=== PATIENT | female | born 1980 | race African-American/Black ===

== ENCOUNTER 2016-03-06 16:34 | Emergency (ER) | payer OTHER ==
[~2016-03-06] VITALS: Ht 152.4 cm; Wt 45.4 kg
[~2016-03-06 16:34] MED LIST: ALBUTEROL SULF8.5 GM INH; ANTI-ITCH28 G1 TP; ATARAX25 MG ORAL; AZITHROMYCIN250 MG ORAL; BENTYL10 MG ORAL; CYCLOBENZAPRINE10 MG ORAL; DOXYCYCLINE MO100 MG ORAL; EPINASTINE HCL5 ML OP; IBUPROFEN600 MG ORAL; NKM; PROMETHAZINE-D118 ML ORAL; QVAR7.3 GM INH; ZITHROMAX250 MG ORAL
[2016-03-06 16:56] VITALS: BP 116/82
--- NOTE | 2016-03-06 17:19 | Emergency Room Report ---
History of Present Illness General Chief Complaint: Pain Source: Patient Present Illness HPI 35-year-old female presents emergency department complaining of clear rhinorrhea , nasal congestion, increased nasal pressure, and intermittent cough but exacerbates her chronic back pain. Patient states she has a history of deviated septum and has had one prior surgery 2 years ago and was told that she will require another surgery. Patient is not up-to-date with her vaccinations she does not vaccination this year. She denies nausea, vomiting, fevers, chills denies productive sputum denies neck pain or stiffness denies recent travel or ill contacts. Patient states she was previously prescribed nasal spray that would significantly help subside her symptoms however she has not had any spray in quite some time and has only been using a Vicks nasal menthol inhaler daily which provides minimal relief. Denies CP, Palpitations, Rash, LOC , AMS, dizziness, Changes in Vision, Sensation, paresthesias, or a sudden severe headache. Allergies: Coded Allergies: CITRIC ACID (Verified Allergy, Unknown, 03/06/16) Patient History Past Medical History: see triage record Past Surgical History: none Pertinent Family History: none Last Menstrual Period: 03/05/16 Now: No Reviewed Nursing Documentation: PMH: Agreed, PSxH: Agreed Nursing Documentation-PMH Hx Asthma: Yes Review of Systems All Other Systems: negative except mentioned in HPI Physical Exam Vital Signs Date Time Temp Pulse Resp B/P Pulse Ox O2 Delivery O2 Flow Rate FiO2 03/06/16 16:44 98.1 98 17 111/80 99 Room Air Sp02 EP Interpretation: reviewed, normal General Appearance: no apparent distress, alert, GCS 15, non-toxic Head: normocephalic, atraumatic Eyes: bilateral eye PERRL, bilateral eye normal inspection ENT: hearing grossly normal, normal pharynx, no angioedema, normal voice, TMs + canals normal, uvula midline, moist mucus membranes, nasal congestion, pharyngeal erythema, other - evidence of post nasal drainage on the posterior pharynx , no exudates, no tonsillar swelling. no appreciable TTP upon palpation of the sinuses. Neck: full range of motion, no meningismus, no bony tend, supple/symm/no masses Respiratory: chest non-tender, lungs clear, normal breath sounds, no rhonchi, no respiratory distress, no retraction, no accessory muscle use, no wheezing, speaking full sentences Cardiovascular #1: regular rate, rhythm, no edema Musculoskeletal: back normal, gait/station normal, normal range of motion, non- tender, no calf tenderness Neurologic: alert, oriented x3, responsive, motor strength/tone normal, sensory intact, speech normal Psychiatric: judgement/insight normal, memory normal, mood/affect normal, no suicidal/homicidal ideation Skin: normal color, no rash, warm/dry, well hydrated Lymphatic: no adenopathy Medical Decision Making PA Attestation Dr. Alarcon is my supervising Physician whom patient management has been discussed with. Diagnostic Impression: Primary Impression: URI ER Course Pt. presents to the ED c/o recurrent nasal congestion with clear drainage, in addition to intermittent cough that exacerbates her chronic back pain. denies sputum production. Ddx considered but are not limited to URI,post nasal drainage, pneumonia, PE, strep pharyngitis, meningitis. Vital signs: Pt. is afebrile, the remaining VS are WNL H&PE are most consistent with URI- no meningeal signs, oropharynx is not involved, no evidence of bacterial infection at this time. PE evidence to suggest post nasal drainage. ORDERS: none required at this time, the diagnosis is clinical ED INTERVENTIONS: None required at this time. --PT. EDUCATION: to follow up with ENT specialist for frequent recurrence of symptoms. DISCHARGE: At this time pt. is stable for d/c to home. Will provide printed patient care instructions, and any necessary prescriptions. Care plan and follow up instructions have been discussed with the patient prior to discharge. Last Vital Signs Date Time Temp Pulse Resp B/P Pulse Ox O2 Delivery O2 Flow Rate FiO2 03/06/16 16:56 98.3 96 18 116/82 98 Room Air Disposition: HOME, SELF-CARE Condition: Stable Scripts D-Methorphan Hb/Prometh Hcl* (PROMETHAZINE-DM SYRUP*) 118 Ml Syrup 5 ML ORAL Q6H Y for For Cough, #118 ML 0 Refills Prov: Charla Meek P.AIsauro 03/06/16 Loratadine (CLARITIN) 10 Mg Tablet 10 MG ORAL DAILY, #30 TAB Prov: Charla Meek P.A. 03/06/16 Fluticasone Propionate (Flonase Allergy Relief) 9.9 Ml [place].susp 2 SPRAYS NS BID, #9.9 ML Prov: Charla Meek 03/06/16 Patient Instructions: Deviated Septum, Upper Respiratory Infection, Adult, Easy -to-Read Additional Instructions: Take medications as directed. Follow up with PCP in 3-5 days Follow up with ENT Specialist for evaluation of your frequent recurrence of symptoms Return sooner to ED if new symptoms occur, or current symptoms become worse. Charla Meek Mar 06, 2016 17:19
[2016-03-06] MEDS ORDERED: CLARITIN10 MG ORAL (17:21)
[2016-03-06] MEDS ORDERED: FLONASE ALLERG9.9 ML NS (17:21)
[2016-03-06] MEDS ORDERED: PROMETHAZINE-D118 ML ORAL (17:21)
[2016-03-06 17:35] VITALS: BP 116/82
== END 2016-03-06 17:38 | disposition home or self-care (01) ==
LOC: EMR 17:01
DX: J06.9 Acute upper respiratory infection, unspecified (principal); J45.909 Unspecified asthma, uncomplicated
CPT/HCPCS: 99284

== ENCOUNTER 2016-03-16 20:39 | Emergency (ER) | payer OTHER ==
[~2016-03-16] VITALS: Ht 152.4 cm; Wt 47.6 kg
[~2016-03-16 20:39] MED LIST changes: +CLARITIN10 MG ORAL; +FLONASE ALLERG9.9 ML NS
[2016-03-16] MEDS ORDERED: BENZONATATE200 MG ORAL (21:07)
[2016-03-16] MEDS ORDERED: AMOXICILLIN500 MG ORAL (21:07)
[2016-03-16] MEDS ORDERED: IBUPROFEN600 MG ORAL (21:21)
[2016-03-16 21:26] VITALS: BP 123/87
[2016-03-16 21:28] VITALS: BP 123/87
--- NOTE | 2016-03-16 21:33 | Emergency Room Report ---
History of Present Illness General Chief Complaint: Upper Respiratory Illness Source: Patient Present Illness [facility] The patient is a 35-year-old female presenting with 5 days of subjective fever, sore throat, productive cough. The patient also states that she developed a headache today which is described as a 9/10 dull ache and felt "all over". Pain worse with coughing. The patient denies any recent travel or sick contacts. Pt denies any other symptoms. Allergies: Coded Allergies: CITRIC ACID (Verified Allergy, Unknown, 03/06/16) Patient History Past Medical History: see triage record Pertinent Family History: none Last Menstrual Period: 03/02/16 Now: No Reviewed Nursing Documentation: PMH: Agreed, PSxH: Agreed Nursing Documentation-PMH Past Medical History: No History, Except For Hx Asthma: Yes Review of Systems All Other Systems: negative except mentioned in HPI Physical Exam Vital Signs Date Time Temp Pulse Resp B/P Pulse Ox O2 Delivery O2 Flow Rate FiO2 03/16/16 20:47 98.1 84 16 117/85 99 Room Air Sp02 EP Interpretation: reviewed, normal General Appearance: no apparent distress, alert, GCS 15, non-toxic Head: normocephalic, atraumatic Eyes: bilateral eye PERRL, bilateral eye normal inspection ENT: hearing grossly normal, no angioedema, normal voice, TMs + canals normal, uvula midline, moist mucus membranes, tonsillar swelling, pharyngeal erythema Neck: full range of motion, supple/symm/no masses Respiratory: chest non-tender, lungs clear, normal breath sounds, no respiratory distress, no wheezing, speaking full sentences Cardiovascular #1: regular rate, rhythm, no edema Gastrointestinal: normal bowel sounds, non tender, soft, non-distended, no guarding, no rebound Genitourinary: normal inspection, no CVA tenderness Musculoskeletal: back normal, gait/station normal, normal range of motion, non- tender Neurologic: alert, oriented x3, responsive, motor strength/tone normal, sensory intact, speech normal Psychiatric: judgement/insight normal, memory normal, mood/affect normal, no suicidal/homicidal ideation Skin: normal color, no rash, warm/dry, well hydrated Lymphatic: adenopathy - cervical Medical Decision Making PA Attestation Dr. Senior is my supervising physician. Patient management was discussed with my supervising physician Diagnostic Impression: Primary Impression: Pharyngitis, acute ER Course The patient is a 35-year-old female presenting with 5 days of subjective fever, sore throat, productive cough. Differential diagnosis include but not limited to pharyngitis, sinusitis, AOM, bronchitis, PNA PE: All vitals WNL. NAD HEENT: There is bilateral tonsillar erythema and edema. Uvula midline. No exudate. + cervical lymphad bilaterally. Lungs CTA bilat. The patient is given Motrin for pain The patient will be discharged home with a prescription for amoxicillin, cough medication, and Motrin for pain. ER precautions are given and the patient will follow up with primary care doctor Last Vital Signs Date Time Temp Pulse Resp B/P Pulse Ox O2 Delivery O2 Flow Rate FiO2 03/16/16 21:28 98.0 86 16 123/87 99 Room Air Status: improved Disposition: HOME, SELF-CARE Condition: Improved Scripts Ibuprofen* (MOTRIN*) 600 Mg Tablet 600 MG ORAL Q8H Y for For Pain, #30 TAB 0 Refills Prov: RAVI QUIÑONEZ P.A. 03/16/16 Benzonatate* (BENZONATATE*) 200 Mg Capsule 200 MG ORAL THREE TIMES A DAY, #15 PERLE Prov: MATILDEANIVETHY P.A. 03/16/16 Amoxicillin* (AMOXIL*) 500 Mg Capsule 500 MG ORAL Q12HR, #20 CAP Prov: MATILDEANIVETHY P.A. 03/16/16 Referrals: [employer] (PCP) Departure Forms: Return to Work Return to Work Date: Mar 18, 2016 Patient Instructions: Upper Respiratory Infection, Adult Additional Instructions: I discussed my findings with the patient. All questions and concerns have been answered. Treatment and medication compliance have been addressed. I advised the patient that they need to follow up with PMD in 3-5 days. Return to ED if pain remains or worsens, cough worsens or remains, you notice blood in your sputum, you notice wheezing, you experience a fever, or if needed for any reason. Patient verbalized understanding of discharge instructions. RAVI QUIÑONEZ Mar 16, 2016 21:33
== END 2016-03-16 21:28 | disposition home or self-care (01) ==
LOC: EMR 21:08
DX: J02.9 Acute pharyngitis, unspecified (principal); J45.909 Unspecified asthma, uncomplicated; Z91.048 Other nonmedicinal substance allergy status
CPT/HCPCS: 99284

== ENCOUNTER 2016-08-29 00:58 | Emergency (ER) | payer OTHER ==
[~2016-08-29] VITALS: Ht 162.6 cm; Wt 47.6 kg
[~2016-08-29 00:58] MED LIST changes: +AMOXICILLIN500 MG ORAL; +BENZONATATE200 MG ORAL
[2016-08-29 01:45] VITALS: BP 123/82
[2016-08-29] MEDS ORDERED: LORazepam Inj 2mg/ml 1ml IV ONE (01:45)
[2016-08-29 01:49] LABS: BASOPHILS % (AUTO) 1.2 % (0.0-2.0); LYMPHOCYTES % (AUTO) 13.5 % (20.0-45.0); MEAN CORPUSCULAR HEMOGLOBIN 32.1 PG (27.0-31.0); MEAN CORPUSCULAR HGB CONC 32.5 G/DL (32.0-36.0); MEAN CORPUSCULAR VOLUME 99 FL (80-99); MONOCYTES % (AUTO) 3.6 % (1.0-10.0); NEUTROPHILS % (AUTO) 81.6 % (45.0-75.0); PLATELET COUNT 280 K/UL (150-450); RED BLOOD COUNT 4.34 M/UL (4.20-5.40); RED CELL DISTRIBUTION WIDTH 13.2 % (11.6-14.8); WHITE BLOOD COUNT 8.3 K/UL (4.8-10.8)
[2016-08-29 02:51] LABS: ALANINE AMINOTRANSFERASE 11 U/L (3-33); ALBUMIN/GLOBULIN RATIO 1.4 (1.0-2.7); ANION GAP 25 (5-15); ASPARTATE AMINO TRANSFERASE 21 U/L (5-40); CALCIUM 10.3 mg/dL (8.6-10.2); CARBON DIOXIDE 20 mEQ/L (20-30); CHLORIDE 95 mEQ/L (98-107); CREATININE 0.6 mg/dL (0.5-0.9); GLOMERULAR FILTRATION RATE > 60 mL/min (>60); HEMOLYSIS 3; POTASSIUM 3.9 mEQ/L (3.4-4.9); SODIUM 140 mEQ/L (135-145); TOTAL PROTEIN 8.1 g/dL (6.6-8.7)
[2016-08-29] MEDS ORDERED: Haloperidol 5mg/ml Inj IM ONE (03:15)
[2016-08-29 03:40] VITALS: BP 126/75
[2016-08-29] MEDS ORDERED: Dicyclomine HCl 10mg/5ml oral soln ORAL ONE (04:30)
[2016-08-29] MEDS ORDERED: ZOFRAN4 M3 ORAL (04:51)
[2016-08-29 05:56] VITALS: BP 103/71
--- NOTE | 2016-09-03 06:21 | Emergency Room Report ---
History of Present Illness General Chief Complaint: Nausea, Vomiting, and Diarrhea Source: Patient Present Illness HPI Patient is a 36-year-old female who presented after increased nausea and vomiting. The patient had acute onset of vomiting associated with nonbloody emesis. Patient had recently used marijuana and subsequently began vomiting. She denied any fever. She reported feeling somewhat dizzy. She was to be hyperventilating. Patient reported having some spasming to her hands as well as numbness to her face hands and feet. She denies recent trauma or headache. Allergies: Coded Allergies: CITRIC ACID (Verified Allergy, Unknown, 03/06/16) Patient History Past Medical History: see triage record Last Menstrual Period: 1 week ago Now: No Reviewed Nursing Documentation: PMH: Agreed, PSxH: Agreed Nursing Documentation-PMH Past Medical History: No History, Except For Hx Asthma: Yes Review of Systems All Other Systems: negative except mentioned in HPI Physical Exam Vital Signs Date Time Temp Pulse Resp B/P Pulse Ox O2 Delivery O2 Flow Rate FiO2 08/29/16 01:12 98.1 105 16 124/78 100 Room Air Sp02 EP Interpretation: reviewed, normal General Appearance: normal inspection, well appearing, no apparent distress, alert, GCS 15, non-toxic Head: normocephalic, atraumatic ENT: normal ENT inspection, hearing grossly normal, normal voice Neck: normal inspection, full range of motion, supple, no bony tend Respiratory: normal inspection, lungs clear, normal breath sounds, no respiratory distress, no retraction, no wheezing Cardiovascular #1: normal inspection, regular rate, rhythm, no edema Gastrointestinal: normal inspection, normal bowel sounds, non tender, soft, no guarding, no hernia Genitourinary: no CVA tenderness Musculoskeletal: normal inspection, back normal, normal range of motion Neurologic: normal inspection, alert, responsive, speech normal, other - carpopedal spasm Psychiatric: normal inspection, judgement/insight normal, mood/affect normal, anxious Skin: normal inspection, normal color, no rash Medical Decision Making Diagnostic Impression: Primary Impression: Substance abuse Additional Impression: Vomiting ER Course Patient presented for vomiting and abdominal pain. Because of complexity of patient's case laboratory testing and imaging studies were ordered. Laboratory studies were unremarkable. Patient given IV fluids as well as IV antiemetics. Patient subsequently felt better. Patient was discharged home after IV fluids and IV hydration. The patient is advised to follow up with primary care doctor in 1-2 days. Patient is advised to return if any worsening condition or if any changes in status that are concerning. Labs Test 08/29/16 01:40 08/29/16 01:41 White Blood Count 8.3 K/UL (4.8-10.8) Red Blood Count 4.34 M/UL (4.20-5.40) Hemoglobin 13.9 G/DL (12.0-16.0) Hematocrit 42.8 % (37.0-47.0) Mean Corpuscular Volume 99 FL (80-99) Mean Corpuscular Hemoglobin 32.1 PG (27.0-31.0) Mean Corpuscular Hemoglobin Concent 32.5 G/DL (32.0-36.0) Red Cell Distribution Width 13.2 % (11.6-14.8) Platelet Count 280 K/UL (150-450) Mean Platelet Volume 8.0 FL (6.5-10.1) Neutrophils (%) (Auto) 81.6 % (45.0-75.0) Lymphocytes (%) (Auto) 13.5 % (20.0-45.0) Monocytes (%) (Auto) 3.6 % (1.0-10.0) Eosinophils (%) (Auto) 0.0 % (0.0-3.0) Basophils (%) (Auto) 1.2 % (0.0-2.0) Total Creatine Kinase 62 U/L (26-140) Sodium Level 140 mEQ/L (135-145) Potassium Level 3.9 mEQ/L (3.4-4.9) Chloride Level 95 mEQ/L (98-107) Carbon Dioxide Level 20 mEQ/L (20-30) Anion Gap 25 (5-15) Blood Urea Nitrogen 7 mg/dL (7-23) Creatinine 0.6 mg/dL (0.5-0.9) Estimat Glomerular Filtration Rate > 60 mL/min (>60) Glucose Level 143 mg/dL (74-106) Calcium Level 10.3 mg/dL (8.6-10.2) Total Bilirubin 0.8 mg/dL (0.0-1.2) Aspartate Amino Transf (AST/SGOT) 21 U/L (5-40) Alanine Aminotransferase (ALT/SGPT) 11 U/L (3-33) Alkaline Phosphatase 63 U/L (35-104) Total Protein 8.1 g/dL (6.6-8.7) Albumin 4.8 g/dL (3.5-5.2) Globulin 3.3 g/dL Albumin/Globulin Ratio 1.4 (1.0-2.7) Last Vital Signs Date Time Temp Pulse Resp B/P Pulse Ox O2 Delivery O2 Flow Rate FiO2 08/29/16 05:56 95 17 103/71 99 Room Air 08/29/16 03:40 98.6 Status: improved Disposition: HOME, SELF-CARE Condition: Stable Scripts Ondansetron* (ZOFRAN*) 4 Mg Tablet 4 MG ORAL Q6H Y for Nausea & Vomiting, #30 TAB Prov: Asa Zamudio 08/29/16 Referrals: NON PHYSICIAN (PCP) Patient Instructions: Nausea, Adult, [id number] Asa Zamudio Sep 03, 2016 06:21
== END 2016-08-29 05:56 | disposition home or self-care (01) ==
LOC: EMR 01:20
DX: F19.10 Other psychoactive substance abuse, uncomplicated (principal); R11.10 Vomiting, unspecified; Z88.8 Allergy status to other drugs, medicaments and biological substances; M62.838 Other muscle spasm
CPT/HCPCS: 36415; 80053; 82550; 85025; 96360; 96372; 96374; 99284; J1630

== ENCOUNTER 2016-11-15 19:00 | Emergency (ER) | payer OTHER ==
[~2016-11-15] VITALS: Ht 154.9 cm; Wt 47.6 kg
[~2016-11-15 19:00] MED LIST changes: +ZOFRAN4 M3 ORAL
[2016-11-15 19:13] VITALS: BP 122/84
--- NOTE | 2016-11-15 19:36 | Emergency Room Report ---
History of Present Illness General Chief Complaint: Sore Throat Present Illness HPI 36-year-old female presents to the emergency department complaining of body aches, 5/10 in severity localized sore throat, headache, nausea, cough x2 days. Patient reports that her daughter has similar symptoms which started the day prior. Reports chills denies fevers. Patient states her last menstrual period was approximately a week ago and denies . Patient denies abdominal pain or vomiting. Denies constipation diarrhea, rashes, neck pain or stiffness. Denies CP, Palpitations, LOC, AMS, dizziness, Changes in Vision, Sensation, paresthesias, or a sudden severe headache. Allergies: Coded Allergies: CITRIC ACID (Verified Allergy, Unknown, 03/06/16) Patient History Past Medical History: see triage record Past Surgical History: none Pertinent Family History: none Last Menstrual Period: 1 week ago Now: No Immunizations: UTD Reviewed Nursing Documentation: PMH: Agreed, PSxH: Agreed Nursing Documentation-PMH Hx Asthma: Yes Review of Systems All Other Systems: negative except mentioned in HPI Physical Exam Vital Signs Date Time Temp Pulse Resp B/P (MAP) Pulse Ox O2 Delivery O2 Flow Rate FiO2 11/15/16 19:07 98.1 82 16 122/84 99 Room Air Sp02 EP Interpretation: reviewed, normal General Appearance: no apparent distress, alert, GCS 15, non-toxic Head: normocephalic, atraumatic Eyes: bilateral eye normal inspection, bilateral eye PERRL ENT: hearing grossly normal, normal pharynx, no angioedema, normal voice, TMs + canals normal, uvula midline, nasal congestion Neck: full range of motion, no meningismus Respiratory: chest non-tender, lungs clear, normal breath sounds, speaking full sentences Cardiovascular #1: regular rate, rhythm Rectal: deferred Musculoskeletal: back normal, gait/station normal, normal range of motion, non- tender Neurologic: alert, oriented x3, responsive, motor strength/tone normal, sensory intact, speech normal Psychiatric: judgement/insight normal, memory normal, mood/affect normal Skin: normal color, no rash, warm/dry, well hydrated, other - small subcutaneous abscess 0.5 cm to the left anterior chest. no rashes Lymphatic: no adenopathy Medical Decision Making PA Attestation Dr. Senior is my supervising Physician whom patient management has been discussed with. Diagnostic Impression: Primary Impression: Abscess Additional Impression: Upper respiratory infection, viral ER Course 36-year-old female presents to the emergency department complaining of body aches, 5/10 in severity localized sore throat, headache, nausea, cough x2 days. Patient reports that her daughter has similar symptoms which started the day prior. Reports chills denies fevers. Patient states her last menstrual period was approximately a week ago and denies . Patient denies abdominal pain or vomiting. Denies constipation diarrhea, rashes, neck pain or stiffness. Denies CP, Palpitations, LOC, AMS, dizziness, Changes in Vision, Sensation, paresthesias, or a sudden severe headache. Pt. also reports insect bite on the anterior left side of abdomen x 1 day with progressive erythema, increased temperature to palpation, and 6/10 in severity pain. pt. states she felt the bite the night prior. this morning noted a white head which she squeezed pus from, however progression of erythema and tenderness. Denies lesions/rashes elsewhere on the body. Denies new medications or body washes or creams. Denies swelling of the lips, tongue , throat or airway. Denies wheezing , or shortness of breath. Denies recent travel, recent illness or ill contacts. denies blisters, oral lesions, or sloughing of the skin. Ddx considered but are not limited to URI, pneumonia, PE, strep pharyngitis, meningitis, Cellulitis, abscess, insect bite just to name a few. Vital signs: Pt. is afebrile, the remaining VS are WNL H&PE are most consistent with URI- no meningeal signs, oropharynx is not involved, no evidence of bacterial infection at this time. --- pt. also has small subcutaneous abscess 0.5 cm to the left anterior chest. no rashes. ORDERS: none required at this time, the diagnosis is clinical ED INTERVENTIONS: None required at this time. --PT. EDUCATION: Discussed antibiotic resistance with inappropriate prescribing of antibiotics for viral illnesses. Discussed signs and symptoms to indicate viral illness versus bacterial illness. DISCHARGE: At this time pt. is stable for d/c to home. Will provide printed patient care instructions, and any necessary prescriptions. Care plan and follow up instructions have been discussed with the patient prior to discharge. Last Vital Signs Date Time Temp Pulse Resp B/P (MAP) Pulse Ox O2 Delivery O2 Flow Rate FiO2 9/25/17 19:13 98.1 84 16 122/84 99 Room Air Disposition: HOME, SELF-CARE Condition: Stable Scripts Bacitracin/Polymyxin B Sulfate (BACITRACIN-POLYMYXIN OINTMENT) 28.35 Gm Oint...g. 1 APPLIC TP BID, #28.3 GM Prov: Charla Meek 11/15/16 Cephalexin* (KEFLEX*) 500 Mg Capsule 500 MG ORAL EVERY 12 HOURS for 7 Days, #14 CAP 0 Refills Prov: Charla Meek 11/15/16 Ibuprofen* (MOTRIN*) 400 Mg Tablet 400 MG ORAL THREE TIMES A DAY, #30 TAB 0 Refills Prov: Charla Meek 11/15/16 Codeine/Promethazine Hcl* (PROMETHAZINE-CODEINE SYRUP*) 118 Ml Syrup 5 ML ORAL Q6H Y for For Cough, #240 ML 0 Refills Prov: Charla Meek 11/15/16 Cetirizine Hcl/Pseudoephedrine (ZYRTEC-D TABLET) 1 Each Tab.er.12h 1 EACH ORAL Q12HR for 7 Days, #14 TAB Prov: Charla Meek 11/15/16 Patient Instructions: Abscess, [id number], Insect Bite, [id number], Upper Respiratory Infection, Adult Additional Instructions: Take medications as directed. Follow up with a Primary Care Provider in 3-5 days, even if your symptoms have resolved. --Please review list of primary care clinics, if you do not already have a primary care provider Return sooner to ED if new symptoms occur, or current symptoms become worse. Do not drink alcohol, drive, or operate heavy machinery while taking cough syrup as this may cause drowsiness. - Please note that this Emergency Department Report was dictated using [employer] power shovel operator technology software, occasionally this can lead to erroneous entry secondary to interpretation by the dictation equipment. Charla Meek Nov 15, 2016 19:36
[2016-11-15] MEDS ORDERED: ZYRTEC-D TABLE1 EACH ORAL (19:44)
[2016-11-15] MEDS ORDERED: IBUPROFEN400 MG ORAL (19:44)
[2016-11-15] MEDS ORDERED: PROMETHAZINE-C118 M1 ORAL (19:44)
[2016-11-15] MEDS ORDERED: CEPHALEXIN500 MG ORAL (19:46)
[2016-11-15] MEDS ORDERED: BACITRACIN-P28.35 GM TP (19:46)
[2016-11-15 20:01] VITALS: BP 122/84
== END 2016-11-15 20:01 | disposition home or self-care (01) ==
LOC: EMR 19:36
DX: L02.213 Cutaneous abscess of chest wall (principal); J06.9 Acute upper respiratory infection, unspecified; J45.909 Unspecified asthma, uncomplicated
CPT/HCPCS: 99284

== ENCOUNTER 2016-12-13 23:36 | Emergency (ER) | payer OTHER ==
[~2016-12-13] VITALS: Ht 152.4 cm; Wt 47.6 kg
[~2016-12-13 23:36] MED LIST changes: +BACITRACIN-P28.35 GM TP; +CEPHALEXIN500 MG ORAL; +IBUPROFEN400 MG ORAL; +PROMETHAZINE-C118 M1 ORAL; +ZYRTEC-D TABLE1 EACH ORAL
[2016-12-13] MEDS ORDERED: NKM (23:46)
[2016-12-13 23:55] VITALS: BP 125/79
[2016-12-14] MEDS ORDERED: METROGEL-VAGINA70 G1 VAGIN (00:56)
[2016-12-14] MEDS ORDERED: DOXYCYCLINE MO100 MG ORAL (00:56)
[2016-12-14 01:15] VITALS: BP 125/79
[2016-12-14] MEDS ORDERED: Lidocaine 1% MPF 10mg/ml 5ml INJ ONE (01:15)
--- NOTE | 2016-12-14 04:03 | Emergency Room Report ---
History of Present Illness General Chief Complaint: Female Urogenital Problems Source: Patient Present Illness HPI Patient 36-year-old female who presented after increased vaginal discharge. Patient reported having increased foul odor. Patient said this had began after unprotected sex. Patient had recently had her menses and had just finished. She denies any recent increase in abdominal pain. She had not been having any fever. She denies any vomiting. Allergies: Coded Allergies: CITRIC ACID (Verified Allergy, Unknown, 03/06/16) Patient History Past Medical History: see triage record Last Menstrual Period: 12/08/16 Now: No : 2 Para: 1 Reviewed Nursing Documentation: PMH: Agreed, PSxH: Agreed Nursing Documentation-PMH Hx Asthma: Yes Review of Systems All Other Systems: negative except mentioned in HPI Physical Exam Vital Signs Date Time Temp Pulse Resp B/P (MAP) Pulse Ox O2 Delivery O2 Flow Rate FiO2 12/13/16 23:43 98.1 77 14 125/79 98 Room Air Sp02 EP Interpretation: reviewed, normal General Appearance: normal inspection, well appearing, no apparent distress, alert, GCS 15 Head: atraumatic ENT: normal ENT inspection, hearing grossly normal, normal voice Neck: normal inspection, full range of motion, supple, no bony tend Respiratory: normal inspection, lungs clear, normal breath sounds, no respiratory distress, no retraction, no wheezing Cardiovascular #1: regular rate, rhythm, no edema Gastrointestinal: normal inspection, normal bowel sounds, non tender, soft, no guarding, no hernia Genitourinary: os closed, other - vaginal discharge, white with fishy odor, no cmt or adnexal tenderness Musculoskeletal: normal inspection, back normal, normal range of motion Neurologic: normal inspection, alert, oriented x3, responsive, materials supervisor III-XII nml as tested, speech normal Psychiatric: normal inspection, judgement/insight normal, mood/affect normal Skin: normal inspection, normal color, no rash Medical Decision Making Diagnostic Impression: Primary Impression: Bacterial vaginosis ER Course The patient presented for vaginal discharge. Differential diagnosis included was not limited to a yeast infection, physiologic discharge, bacterial vaginosis , gonorrhea, Chlamydia, among others. Patient's benign exam and does not appear to require any further imaging or laboratory testing at this time. The patient was noted to have evidence of bacterial vaginosis. Patient being empirically treated for possible STDs due to recent unprotected sex and some cervical discharge. The patient was advised outpatient STD testing. Last Vital Signs Date Time Temp Pulse Resp B/P (MAP) Pulse Ox O2 Delivery O2 Flow Rate FiO2 12/14/16 01:15 77 14 125/79 98 Room Air 12/13/16 23:55 98.1 Status: improved Disposition: HOME, SELF-CARE Condition: Stable Scripts Doxycycline Monohydrate* (DOXYCYCLINE MONOHYDRATE*) 100 Mg Capsule 100 MG ORAL Q12H, #14 CAP 0 Refills Prov: Asa Zamudio 12/14/16 Metronidazole* (METROGEL-VAGINAL*) 70 Gm Gel.w.appl 1 APPL VAGIN EVERY 12 HOURS, #70 GM Prov: Asa Zamudio 12/14/16 Patient Instructions: Vaginitis Asa Zamudio Dec 14, 2016 04:03
== END 2016-12-14 01:15 | disposition home or self-care (01) ==
LOC: EMR 12-14 00:37
DX: N76.0 Acute vaginitis (principal); J45.909 Unspecified asthma, uncomplicated; Z88.8 Allergy status to other drugs, medicaments and biological substances
CPT/HCPCS: 96372; 99284; J0696

== ENCOUNTER 2017-02-23 07:40 | Inpatient (IN) | payer OTHER ==
[~2017-02-23] VITALS: Ht 162.6 cm; Wt 59.0 kg
[~2017-02-23 07:40] MED LIST changes: +METROGEL-VAGINA70 G1 VAGIN
[2017-02-23] MEDS ORDERED: DiphenhydrAMINE 50mg/ml Inj IVP ONE (08:00)
[2017-02-23] MEDS ORDERED: Metoclopramide 10mg/2ml Inj IVP ONE (08:00)
[2017-02-23 08:30] LABS: BASOPHILS % (AUTO) 1.8 % (0.0-2.0); EOSINOPHILS % (AUTO) 0.1 % (0.0-3.0); HEMATOCRIT 42.9 % (37.0-47.0); HEMOGLOBIN 14.2 G/DL (12.0-16.0); LYMPHOCYTES % (AUTO) 18.1 % (20.0-45.0); MEAN CORPUSCULAR VOLUME 98 FL (80-99); MONOCYTES % (AUTO) 6.3 % (1.0-10.0); NEUTROPHILS % (AUTO) 73.6 % (45.0-75.0); PLATELET COUNT 160 K/UL (150-450); RED BLOOD COUNT 4.35 M/UL (4.20-5.40); RED CELL DISTRIBUTION WIDTH 12.1 % (11.6-14.8); WHITE BLOOD COUNT 6.7 K/UL (4.8-10.8)
[2017-02-23 08:46] LABS: ANION GAP 12 mmol/L (5-15); BLOOD UREA NITROGEN 6 mg/dL (7-18); CALCIUM 8.3 MG/DL (8.5-10.1); CARBON DIOXIDE 22 MMOL/L (21-32); CHLORIDE 104 MMOL/L (98-107); CREATININE 0.6 MG/DL (0.55-1.30); POTASSIUM 3.9 MMOL/L (3.5-5.1); SODIUM 138 MMOL/L (136-145)
[2017-02-23 08:50] LABS: ALANINE AMINOTRANSFERASE 16 U/L (12-78); ALBUMIN 4.3 G/DL (3.4-5.0); ALBUMIN/GLOBULIN RATIO 1.1 (1.0-2.7); ALKALINE PHOSPHATASE 57 U/L (46-116); ASPARTATE AMINO TRANSFERASE 28 U/L (15-37); BILIRUBIN,TOTAL 0.4 MG/DL (0.2-1.0)
[2017-02-23 09:37] LABS: APPEARANCE,URINE CLEAR; BILIRUBIN, URINE NEGATIVE (NEGATIVE); COLOR,URINE PALE YELLOW; GLUCOSE, URINE (UA) NEGATIVE (NEGATIVE); KETONES,URINE 3+ (NEGATIVE); LEUKOCYTE ESTERASE ,URINE NEGATIVE (NEGATIVE); NITRITE,URINE NEGATIVE (NEGATIVE); PH,URINE 8 (4.5-8.0); PROTEIN,URINE NEGATIVE (NEGATIVE); UROBILINOGEN,URINE NORMAL MG/DL (0.0-1.0)
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
[2017-02-23 10:52] VITALS: BP 116/78
[2017-02-23] MEDS ORDERED: LORazepam Inj 2mg/ml 1ml IV PRN (13:15)
[2017-02-23] MEDS ORDERED: Metoclopramide 10mg/2ml Inj IVP PRN (13:15)
[2017-02-23] MEDS ORDERED: Mylanta II UD 30ml ORAL PRN (13:15)
[2017-02-23] MEDS ORDERED: Nitroglycerin Subl 0.4mg tab SL PRN (13:15)
[2017-02-23] MEDS ORDERED: Ketorolac 30mg Inj IV ONE (13:30)
[2017-02-23 14:07] VITALS: BP 118/74
[2017-02-23 14:45] VITALS: BP 135/74
[2017-02-23] MEDS: Morphine Sulfate 2mg/ml Inj IVP PRN (15:31)
[2017-02-23] MEDS: D5 1/2NS 1,000 ML IV SCH (15:38)
[2017-02-23 16:37] VITALS: BP 100/57
[2017-02-23 20:00] VITALS: BP 106/60
[2017-02-23] MEDS: Heparin 5000 units/ml inj SUBQ SCH (20:48)
[2017-02-23] MEDS ORDERED: Miralax 17gm pkt ORAL PRN (21:00)
--- NOTE | 2017-02-23 22:44 | History and Physical ---
History of Present Illness General Date patient seen: Feb 23, 2017 Reason for Hospitalization: Abdominal Pain Present Illness HPI 36 year old female presenting with cc of p with intractable and recurrent vomiting after eating a salmon casserole. She states that around 1 AM this morning she woke u She states that she also had multiple episodes of diarrhea. She has had crampy abdominal pain. She denies chest pain or shortness of breath. She denies recent illness. She denies fever or chills. She states that she is allover body aches. She has no other complaints. Allergies: Coded Allergies: CITRIC ACID (Verified Allergy, Unknown, 03/06/16) Medication History Scheduled Amoxicillin* (Amoxil*), 500 MG ORAL Q12HR Bacitracin/Polymyxin B Sulfate (Bacitracin-Polymyxin Ointment), 1 APPLIC TP BID Benzonatate* (Benzonatate*), 200 MG ORAL THREE TIMES A DAY Cephalexin* (Keflex*), 500 MG ORAL EVERY 12 HOURS Cetirizine Hcl/Pseudoephedrine (Zyrtec-D Tablet), 1 EACH ORAL Q12HR Doxycycline Monohydrate* (Doxycycline Monohydrate*), 100 MG ORAL Q12H Epinastine Hcl (Epinastine Hcl), 3 DROP OP TID Fluticasone Propionate (Flonase Allergy Relief), 2 SPRAYS NS BID Hydrocortisone 2% Cream (Anti-Itch 2% Cream), 1 APPLIC TP BID Hydroxyzine HCl (Hydroxyzine HCl), 25 MG ORAL FOUR TIMES A DAY Ibuprofen* (Motrin*), 400 MG ORAL THREE TIMES A DAY Loratadine (Claritin), 10 MG ORAL DAILY Metronidazole* (Metrogel-Vaginal*), 1 APPL VAGIN EVERY 12 HOURS No Known Medications* (NKM - No Known Medications*), 0 ., (Reported) No Known Medications* (NKM - No Known Medications*), 0 ., (Reported) No Known Medications* (NKM - No Known Medications*), 0 ., (Reported) Scheduled PRN Codeine/Promethazine Hcl* (Promethazine-Codeine Syrup*), 5 ML ORAL Q6H PRN for For Cough D-Methorphan Hb/Prometh Hcl* (Promethazine-Dm Syrup*), 5 ML ORAL Q6H PRN for For Cough Ibuprofen* (Motrin*), 600 MG ORAL Q8H PRN for For Pain Ondansetron* (Zofran*), 4 MG ORAL Q6H PRN for Nausea & Vomiting Patient History Healthcare decision maker Resuscitation status Full Code Advanced Directive on File Past Medical/Surgical History Past Medical/Surgical History: (1) Substance abuse Review of Systems All Other Systems: negative except mentioned in HPI Physical Exam General Appearance: cachetic Lines, tubes and drains: peripheral HEENT: normocephalic, atraumatic Neck: non-tender, normal alignment Respiratory/Chest: chest wall non-tender, lungs clear Cardiovascular/Chest: normal peripheral pulses Abdomen: normal bowel sounds Last 24 Hour Vital Signs Date Time Temp Pulse Resp B/P (MAP) Pulse Ox O2 Delivery O2 Flow Rate FiO2 02/23/17 16:38 100 Room Air 02/23/17 16:37 98.3 91 18 100/57 100 Room Air 02/23/17 16:01 98.3 02/23/17 15:10 98.0 94 18 135/74 94 Room Air 02/23/17 14:45 98.0 94 18 135/74 94 Room Air 02/23/17 14:45 94 Room Air 02/23/17 14:07 97.8 78 16 118/74 100 Room Air 02/23/17 10:52 72 16 116/78 100 Room Air 02/23/17 07:22 96 16 114/75 100 Room Air Laboratory Tests Test 02/23/17 08:10 02/23/17 09:10 White Blood Count 6.7 K/UL (4.8-10.8) Red Blood Count 4.35 M/UL (4.20-5.40) Hemoglobin 14.2 G/DL (12.0-16.0) Hematocrit 42.9 % (37.0-47.0) Mean Corpuscular Volume 98 FL (80-99) Mean Corpuscular Hemoglobin 32.6 PG (27.0-31.0) H Mean Corpuscular Hemoglobin Concent 33.1 G/DL (32.0-36.0) Red Cell Distribution Width 12.1 % (11.6-14.8) Platelet Count 160 K/UL (150-450) Mean Platelet Volume 9.0 FL (6.5-10.1) Neutrophils (%) (Auto) 73.6 % (45.0-75.0) Lymphocytes (%) (Auto) 18.1 % (20.0-45.0) L Monocytes (%) (Auto) 6.3 % (1.0-10.0) Eosinophils (%) (Auto) 0.1 % (0.0-3.0) Basophils (%) (Auto) 1.8 % (0.0-2.0) Sodium Level 138 MMOL/L (136-145) Potassium Level 3.9 MMOL/L (3.5-5.1) Chloride Level 104 MMOL/L (98-107) Carbon Dioxide Level 22 MMOL/L (21-32) Anion Gap 12 mmol/L (5-15) Blood Urea Nitrogen 6 mg/dL (7-18) L Creatinine 0.6 MG/DL (0.55-1.30) Estimat Glomerular Filtration Rate > 60 mL/min (>60) Glucose Level 127 MG/DL (74-106) H Calcium Level 8.3 MG/DL (8.5-10.1) L Total Bilirubin 0.4 MG/DL (0.2-1.0) Aspartate Amino Transf (AST/SGOT) 28 U/L (15-37) Alanine Aminotransferase (ALT/SGPT) 16 U/L (12-78) Alkaline Phosphatase 57 U/L (46-116) Total Protein 8.1 G/DL (6.4-8.2) Albumin 4.3 G/DL (3.4-5.0) Globulin 3.8 g/dL Albumin/Globulin Ratio 1.1 (1.0-2.7) Lipase 65 U/L (73-393) L Urine Color Pale yellow Urine Appearance Clear Urine pH 8 (4.5-8.0) Urine Specific [place] 1.010 (1.005-1.035) Urine Protein Negative (NEGATIVE) Urine Glucose (UA) Negative (NEGATIVE) Urine Ketones 3+ (NEGATIVE) H Urine Occult Blood Negative (NEGATIVE) Urine Nitrite Negative (NEGATIVE) Urine Bilirubin Negative (NEGATIVE) Urine Urobilinogen Normal MG/DL (0.0-1.0) Urine Leukocyte Esterase Negative (NEGATIVE) Urine HCG, Qualitative Negative Height (Feet): 5 Height (Inches): 4.00 Weight (Pounds): 130 Medications Current Medications Medications (Trade) Dose Ordered Sig/Delia Route PRN Reason Start Time Stop Time Status Last Admin Dose Admin Acetaminophen (Tylenol) 650 mg Q4H PRN ORAL T>100.5 02/23/17 13:15 03/25/17 13:14 Al Hydroxide/Mg Hydroxide (Mylanta II) 30 ml Q6H PRN ORAL dyspepsia 02/23/17 13:15 03/25/17 13:14 Dextrose (Dextrose 50%) STAT PRN IV Hypoglycemia 02/23/17 13:15 03/25/17 13:14 Dextrose/Sodium Chloride 1,000 ml @ 75 mls/hr [id number] IV 02/23/17 14:00 03/25/17 13:59 02/23/17 15:38 Diphenhydramine HCl (Benadryl) 25 mg Q6H PRN ORAL Itching/Pruritis 02/23/17 13:15 03/25/17 13:14 Heparin Sodium (Porcine) (Heparin 5000 units/ml) 5,000 units EVERY 12 HOURS SUBQ 02/23/17 21:00 03/25/17 20:59 02/23/17 20:48 Lorazepam (Ativan 2mg/ml 1ml) 1 mg Q4H PRN IV agitation 02/23/17 13:15 03/02/17 13:14 Morphine Sulfate (Morphine Sulfate) 2 mg Q4H PRN IVP severe Pain (Pain Scale 7-10) 02/23/17 13:15 03/02/17 13:14 02/23/17 15:31 Nitroglycerin (Ntg) 0.4 mg Q5M X 3 DOSES PRN SL Prn Chest Pain 02/23/17 13:15 03/25/17 13:14 Ondansetron HCl (Zofran) 4 mg Q6H PRN IVP Nausea & Vomiting 02/23/17 13:15 03/25/17 13:14 02/23/17 18:56 Pantoprazole (Protonix) 40 mg DAILY IV 02/24/17 09:00 03/26/17 08:59 Polyethylene Glycol (Miralax) 17 gm HSPRN PRN ORAL Constipation 02/23/17 21:00 03/25/17 20:59 Promethazine HCl (Phenergan) 25 mg Q8H PRN IV refractory nausea 02/23/17 13:15 03/25/17 13:14 Temazepam (Restoril) 15 mg HSPRN PRN ORAL Insomnia 02/23/17 21:00 03/02/17 20:59 Assessment/Plan Problem List: (1) Food poisoning ICD Codes: T62.91XA - Toxic effect of unspecified noxious substance eaten as food, accidental (unintentional), initial encounter SNOMED: 79484891 (2) Nausea vomiting and diarrhea ICD Codes: R11.2 - Nausea with vomiting, unspecified; R19.7 - Diarrhea, unspecified SNOMED: 0173162 (3) Abdominal pain ICD Codes: R10.9 - Unspecified abdominal pain SNOMED: 52529222 Assessment/Plan npo IV fluids check electrolytes GI evaluation. RAMAN WOMACK Feb 23, 2017 22:44
[2017-02-24] VITALS: BP 101/60
[2017-02-24 04:00] VITALS: BP 95/60
[2017-02-24] MEDS: D5 1/2NS 1,000 ML IV SCH ×2 (04:14→17:15)
[2017-02-24] MEDS: Morphine Sulfate 2mg/ml Inj IVP PRN (04:14)
[2017-02-24 06:43] LABS: BASOPHILS % (AUTO) 1.8 % (0.0-2.0); EOSINOPHILS % (AUTO) 0.2 % (0.0-3.0); HEMATOCRIT 34.6 % (37.0-47.0); HEMOGLOBIN 12.4 G/DL (12.0-16.0); LYMPHOCYTES % (AUTO) 26.7 % (20.0-45.0); MEAN CORPUSCULAR VOLUME 98 FL (80-99); MONOCYTES % (AUTO) 8.9 % (1.0-10.0); NEUTROPHILS % (AUTO) 62.5 % (45.0-75.0); PLATELET COUNT 193 K/UL (150-450); RED BLOOD COUNT 3.55 M/UL (4.20-5.40); WHITE BLOOD COUNT 9.4 K/UL (4.8-10.8)
[2017-02-24 08:00] VITALS: BP 87/53
[2017-02-24 08:12] LABS: ALANINE AMINOTRANSFERASE 12 U/L (12-78); ALBUMIN 3.1 G/DL (3.4-5.0); ALBUMIN/GLOBULIN RATIO 1.1 (1.0-2.7); ALKALINE PHOSPHATASE 39 U/L (46-116); AMYLASE 74 U/L (25-115); ANION GAP 9 mmol/L (5-15); ASPARTATE AMINO TRANSFERASE 16 U/L (15-37); BILIRUBIN,TOTAL 0.7 MG/DL (0.2-1.0); BLOOD UREA NITROGEN 5 mg/dL (7-18); CALCIUM 7.2 MG/DL (8.5-10.1); CARBON DIOXIDE 22 MMOL/L (21-32); CHLORIDE 106 MMOL/L (98-107); CREATININE 0.5 MG/DL (0.55-1.30); SODIUM 137 MMOL/L (136-145)
[2017-02-24 08:13] LABS: POTASSIUM 2.7 MMOL/L (3.5-5.1)
[2017-02-24] MEDS: Pantoprazole Inj IV SCH (09:18)
[2017-02-24] MEDS: Heparin 5000 units/ml inj SUBQ SCH ×2 (09:19→20:57)
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
--- NOTE | 2017-02-24 10:51 | Diagnostic Imaging Report ---
Indication: Abdominal pain Technique: Resendiz-scale and duplex images of the upper abdomen were obtained Comparison: none Findings: Gallbladder is unremarkable, without stones, wall thickening, nor pericholecystic fluid. Sonographic Mtz's sign is negative. Common bile duct measures 3 mm in diameter. No intrahepatic biliary ductal dilatation. Liver demonstrates normal echogenicity, no focal abnormality. Portal vein and hepatic veins are patent. Pancreas is unremarkable. Spleen is unremarkable. Left kidney measures 10.8 cm in length. Right kidney measures 10.6 cm length. Both kidneys demonstrate normal echogenicity. There is no hydronephrosis. No focal abnormality . Non-aneurysmal abdominal aorta . Impression: Negative
--- NOTE | 2017-02-24 12:45 | Pulmonology Progress Note ---
Assessment/Plan Assessment/Plan ASSESSMENT Abdominal pain intractable n/v/ diarrhea probably gastroenteritis dehydration hypo K hypo Mg marijuana user asthma/COPD PLAN OF CARE MS floor IVF Abd US negative IVF GI follows symptomatic treatment at this time trial CLD, and adv to regular diet as tolerated, a/emetic prn IVF, push PO fluids, K replaced , check K and mg in am pain mgmt ppi stool C dif O2 HHN prn, resp status currently stable get urine tox screen - + marijuana tolerates diet, afebrile, no further vomiting or diarrhea dc today push po fluids addendum at 1255 patient stated she is having abdominal pain and stated she does not want to go home with pain cancel dc order pain management advance diet case discussed and evaluated by supervising physician Subjective Allergies: Coded Allergies: CITRIC ACID (Verified Allergy, Unknown, 03/06/16) Subjective feeling better tolerates diet no further vomiting or diarrhea Objective Last 24 Hour Vital Signs Date Time Temp Pulse Resp B/P (MAP) Pulse Ox O2 Delivery O2 Flow Rate FiO2 02/24/17 08:00 98.0 74 18 87/53 96 02/24/17 04:00 98.9 90 17 95/60 99 Room Air 02/24/17 00:00 98.0 90 18 101/60 99 Room Air 02/23/17 20:00 98.0 90 17 106/60 100 Room Air 02/23/17 16:38 100 Room Air 02/23/17 16:37 98.3 91 18 100/57 100 Room Air 02/23/17 16:01 98.3 02/23/17 15:10 98.0 94 18 135/74 94 Room Air 02/23/17 14:45 98.0 94 18 135/74 94 Room Air 02/23/17 14:45 94 Room Air 02/23/17 14:07 97.8 78 16 118/74 100 Room Air Intake and Output 02/23/17 02/24/17 19:00 07:00 Intake Total 1375 ml 675 ml Balance 1375 ml 675 ml Intake Oral 0 ml IV Total 1375 ml 675 ml # Voids 3 2 General Appearance: no acute distress HEENT: normocephalic, atraumatic, anicteric, mucous membranes moist Respiratory/Chest: lungs clear, normal breath sounds, no respiratory distress Cardiovascular: normal peripheral pulses, normal rate Abdomen: normal bowel sounds, soft, non tender Extremities: no edema, pedal pulses normal Neurologic/Psychiatric: no motor/sensory deficits, alert, oriented x 3, responsive Musculoskeletal: normal muscle bulk Laboratory Tests 02/24/17 05:15: White Blood Count 9.4, Red Blood Count 3.55L, Hemoglobin 12.4, Hematocrit 34.6L , Mean Corpuscular Volume 98, Mean Corpuscular Hemoglobin 34.9H, Mean Corpuscular Hemoglobin Concent 35.8, Red Cell Distribution Width 12.0, Platelet Count 193, Mean Platelet Volume 9.0, Neutrophils (%) (Auto) 62.5, Lymphocytes (% ) (Auto) 26.7, Monocytes (%) (Auto) 8.9, Eosinophils (%) (Auto) 0.2, Basophils ( %) (Auto) 1.8, Activated Partial Thromboplast Time 28, Sodium Level 137, Potassium Level 2.7*L, Chloride Level 106, Carbon Dioxide Level 22, Anion Gap 9 , Blood Urea Nitrogen 5L, Creatinine 0.5L, Estimat Glomerular Filtration Rate > 60, Glucose Level 89, Calcium Level 7.2L, Total Bilirubin 0.7, Aspartate Amino Transf (AST/SGOT) 16, Alanine Aminotransferase (ALT/SGPT) 12, Alkaline Phosphatase 39L, Total Protein 5.9L, Albumin 3.1L, Globulin 2.8, Albumin/ Globulin Ratio 1.1, Amylase Level 74, Lipase 151 02/24/17 11:15: Urine Opiates Screen [Pending], Urine Barbiturates Screen [Pending], Phencyclidine (PCP) Screen [Pending], Urine Amphetamines Screen [Pending], Urine Benzodiazepines Screen [Pending], Urine Cocaine Screen [Pending], Urine Marijuana (THC) Screen [Pending] Current Medications Medications (Trade) Dose Ordered Sig/Delia Route PRN Reason Start Time Stop Time Status Last Admin Dose Admin Acetaminophen (Tylenol) 650 mg Q4H PRN ORAL T>100.5 02/23/17 13:15 03/25/17 13:14 Al Hydroxide/Mg Hydroxide (Mylanta II) 30 ml Q6H PRN ORAL dyspepsia 02/23/17 13:15 03/25/17 13:14 Dextrose (Dextrose 50%) STAT PRN IV Hypoglycemia 02/23/17 13:15 2/2/18 13:14 Dextrose/Sodium Chloride 1,000 ml @ 75 mls/hr [id number] IV 02/23/17 14:00 03/25/17 13:59 02/24/17 04:14 Diphenhydramine HCl (Benadryl) 25 mg Q6H PRN ORAL Itching/Pruritis 02/23/17 13:15 03/25/17 13:14 Heparin Sodium (Porcine) (Heparin 5000 units/ml) 5,000 units EVERY 12 HOURS SUBQ 02/23/17 21:00 03/25/17 20:59 02/24/17 09:19 Lorazepam (Ativan 2mg/ml 1ml) 1 mg Q4H PRN IV agitation 02/23/17 13:15 03/02/17 13:14 Morphine Sulfate (Morphine Sulfate) 2 mg Q4H PRN IVP severe Pain (Pain Scale 7-10) 02/23/17 13:15 03/02/17 13:14 02/24/17 04:14 Nitroglycerin (Ntg) 0.4 mg Q5M X 3 DOSES PRN SL Prn Chest Pain 02/23/17 13:15 03/25/17 13:14 Ondansetron HCl (Zofran) 4 mg Q6H PRN IVP Nausea & Vomiting 02/23/17 13:15 03/25/17 13:14 02/24/17 09:18 Pantoprazole (Protonix) 40 mg DAILY IV 02/24/17 09:00 03/26/17 08:59 02/24/17 09:18 Polyethylene Glycol (Miralax) 17 gm HSPRN PRN ORAL Constipation 02/23/17 21:00 03/25/17 20:59 Promethazine HCl (Phenergan) 25 mg Q8H PRN IV refractory nausea 02/23/17 13:15 03/25/17 13:14 Temazepam (Restoril) 15 mg HSPRN PRN ORAL Insomnia 02/23/17 21:00 03/02/17 20:59 Asaf MoralesLuly mera NP Feb 24, 2017 12:45
[2017-02-24 20:00] VITALS: BP 121/80
[2017-02-25 04:00] VITALS: BP 135/65
[2017-02-25] MEDS: D5 1/2NS 1,000 ML IV SCH (05:50)
[2017-02-25 07:23] LABS: BASOPHILS % (AUTO) 1.3 % (0.0-2.0); EOSINOPHILS % (AUTO) 0.6 % (0.0-3.0); HEMATOCRIT 36.9 % (37.0-47.0); HEMOGLOBIN 12.7 G/DL (12.0-16.0); LYMPHOCYTES % (AUTO) 43.3 % (20.0-45.0); MEAN CORPUSCULAR VOLUME 98 FL (80-99); MONOCYTES % (AUTO) 9.2 % (1.0-10.0); NEUTROPHILS % (AUTO) 45.7 % (45.0-75.0); PLATELET COUNT 203 K/UL (150-450); RED BLOOD COUNT 3.75 M/UL (4.20-5.40); RED CELL DISTRIBUTION WIDTH 11.9 % (11.6-14.8); WHITE BLOOD COUNT 6.7 K/UL (4.8-10.8)
[2017-02-25 07:52] LABS: ANION GAP 9 mmol/L (5-15); BLOOD UREA NITROGEN 4 mg/dL (7-18); CALCIUM 7.5 MG/DL (8.5-10.1); CARBON DIOXIDE 24 MMOL/L (21-32); CHLORIDE 106 MMOL/L (98-107); CREATININE 0.6 MG/DL (0.55-1.30); POTASSIUM 3.3 MMOL/L (3.5-5.1); SODIUM 139 MMOL/L (136-145)
--- NOTE | 2017-02-25 07:59 | Pulmonology Progress Note ---
Assessment/Plan Assessment/Plan ASSESSMENT Abdominal pain intractable n/v/ diarrhea probably gastroenteritis dehydration hypo K , hypo Mg marijuana user asthma/COPD PLAN OF CARE MS floor IVF Abd US negative IVF GI follows symptomatic treatment at this time adv diet, to regular, monitor tolerance a/emetic prn IVF, push PO fluids, K and Mg replaced , check K and in am judicious pain mgmt ppi stool C dif O2 HHN prn, resp status currently stable get urine tox screen - + marijuana if tolerates diet can be dc today if cleared by GI push po fluids case discussed and evaluated by supervising physician Subjective Allergies: Coded Allergies: CITRIC ACID (Verified Allergy, Unknown, 03/06/16) Subjective dc was cancelled yesterday, patient had epigastric pain after eating although initially wanted o go home, later declined since still felt pain no further vomiting or diarrhea K-3.3 denies abdominal pain, tolerated CL diet Objective Last 24 Hour Vital Signs Date Time Temp Pulse Resp B/P (MAP) Pulse Ox O2 Delivery O2 Flow Rate FiO2 02/25/17 04:00 98.0 75 17 135/65 100 02/24/17 20:00 98.0 80 18 121/80 100 02/24/17 08:00 98.0 74 18 87/53 96 Intake and Output 02/24/17 02/25/17 19:00 07:00 Intake Total 1525 ml 750 ml Balance 1525 ml 750 ml Intake Oral 700 ml IV Total 825 ml 750 ml # Voids 3 1 Objective General Appearance: no acute distress HEENT: normocephalic, atraumatic, anicteric, mucous membranes moist Respiratory/Chest: lungs clear, normal breath sounds, no respiratory distress Cardiovascular: normal peripheral pulses, normal rate Abdomen: normal bowel sounds, soft, non tender Extremities: no edema, pedal pulses normal Neurologic/Psychiatric: no motor/sensory deficits, alert, oriented x 3, responsive Musculoskeletal: normal muscle bulk Laboratory Tests 02/24/17 11:15: Urine Opiates Screen Negative, Urine Barbiturates Screen Negative, Phencyclidine (PCP) Screen Negative, Urine Amphetamines Screen Negative, Urine Benzodiazepines Screen Negative, Urine Cocaine Screen Negative, Urine Marijuana (THC) Screen PositiveH 02/25/17 05:15: White Blood Count 6.7, Red Blood Count 3.75L, Hemoglobin 12.7, Hematocrit 36.9L , Mean Corpuscular Volume 98, Mean Corpuscular Hemoglobin 34.0H, Mean Corpuscular Hemoglobin Concent 34.6, Red Cell Distribution Width 11.9, Platelet Count 203, Mean Platelet Volume 8.6, Neutrophils (%) (Auto) 45.7, Lymphocytes (% ) (Auto) 43.3, Monocytes (%) (Auto) 9.2, Eosinophils (%) (Auto) 0.6, Basophils ( %) (Auto) 1.3, Sodium Level 139, Potassium Level 3.3L, Chloride Level 106, Carbon Dioxide Level 24, Anion Gap 9, Blood Urea Nitrogen 4L, Creatinine 0.6, Estimat Glomerular Filtration Rate > 60, Glucose Level 88, Calcium Level 7.5L, Magnesium Level [Pending] Current Medications Medications (Trade) Dose Ordered Sig/Delia Route PRN Reason Start Time Stop Time Status Last Admin Dose Admin Acetaminophen (Tylenol) 650 mg Q4H PRN ORAL T>100.5 02/23/17 13:15 03/25/17 13:14 Al Hydroxide/Mg Hydroxide (Mylanta II) 30 ml Q6H PRN ORAL dyspepsia 02/23/17 13:15 03/25/17 13:14 02/24/17 17:20 Dextrose (Dextrose 50%) STAT PRN IV Hypoglycemia 02/23/17 13:15 03/25/17 13:14 Dextrose/Sodium Chloride 1,000 ml @ 75 mls/hr [id number] IV 02/23/17 14:00 03/25/17 13:59 02/25/17 05:50 Diphenhydramine HCl (Benadryl) 25 mg Q6H PRN ORAL Itching/Pruritis 02/23/17 13:15 03/25/17 13:14 Heparin Sodium (Porcine) (Heparin 5000 units/ml) 5,000 units EVERY 12 HOURS SUBQ 02/23/17 21:00 03/25/17 20:59 02/24/17 20:57 Lorazepam (Ativan 2mg/ml 1ml) 1 mg Q4H PRN IV agitation 02/23/17 13:15 03/02/17 13:14 Morphine Sulfate (Morphine Sulfate) 2 mg Q4H PRN IVP severe Pain (Pain Scale 7-10) 02/23/17 13:15 03/02/17 13:14 02/24/17 04:14 Nitroglycerin (Ntg) 0.4 mg Q5M X 3 DOSES PRN SL Prn Chest Pain 02/23/17 13:15 03/25/17 13:14 Ondansetron HCl (Zofran) 4 mg Q6H PRN IVP Nausea & Vomiting 02/23/17 13:15 03/25/17 13:14 02/24/17 09:18 Pantoprazole (Protonix) 40 mg DAILY IV 02/24/17 09:00 03/26/17 08:59 02/24/17 09:18 Polyethylene Glycol (Miralax) 17 gm HSPRN PRN ORAL Constipation 02/23/17 21:00 03/25/17 20:59 Promethazine HCl (Phenergan) 25 mg Q8H PRN IV refractory nausea 02/23/17 13:15 03/25/17 13:14 Temazepam (Restoril) 15 mg HSPRN PRN ORAL Insomnia 02/23/17 21:00 03/02/17 20:59 Asaf BurroughsGuthrie Corning HospitalLuly Olson NP Feb 25, 2017 07:59
[2017-02-25] MEDS: Pantoprazole Inj IV SCH (08:48)
[2017-02-25] MEDS: Heparin 5000 units/ml inj SUBQ SCH (08:56)
--- NOTE | 2017-02-25 11:00 | GI Progress Note ---
Assessment/Plan Problems: (1) Food poisoning ICD Codes: T62.91XA - Toxic effect of unspecified noxious substance eaten as food, accidental (unintentional), initial encounter SNOMED: 89543396 (2) Vomiting ICD Codes: R11.10 - Vomiting, unspecified SNOMED: 442670744 (3) Abdominal pain ICD Codes: R10.9 - Unspecified abdominal pain SNOMED: 49890373 (4) Substance abuse ICD Codes: F19.10 - Other psychoactive substance abuse, uncomplicated SNOMED: 90994155 (5) Nausea vomiting and diarrhea ICD Codes: R11.2 - Nausea with vomiting, unspecified; R19.7 - Diarrhea, unspecified SNOMED: 1626311 (6) Gastroenteritis ICD Codes: K52.9 - Noninfective gastroenteritis and colitis, unspecified; R19.7 - Diarrhea, unspecified SNOMED: 18697593 Status: stable Status Narrative Discussed with Dr. Gallo. Assessment/Plan utox >> marijuana symptomatic treatment at this time adv to regular diet zofran prn IV/PO hydration + electrolyte replacement pain mgmt ppi fu labs The patient was seen and examined at bedside and all new and available data was reviewed in the patients chart. I agree with the above findings, impression and plan. (Patient seen earlier today. Signature stamp does not reflect patient encounter time.). - Alfreda Gallo MD Subjective Subjective nausea has improved ready to eat Objective Last 24 Hour Vital Signs Date Time Temp Pulse Resp B/P (MAP) Pulse Ox O2 Delivery O2 Flow Rate FiO2 02/25/17 04:00 98.0 75 17 135/65 100 02/24/17 20:00 98.0 80 18 121/80 100 Intake and Output 02/24/17 02/25/17 19:00 07:00 Intake Total 1525 ml 750 ml Balance 1525 ml 750 ml Intake Oral 700 ml IV Total 825 ml 750 ml # Voids 3 1 Laboratory Tests Test 02/24/17 11:15 02/25/17 05:15 Urine Opiates Screen Negative (NEGATIVE) Urine Barbiturates Screen Negative (NEGATIVE) Phencyclidine (PCP) Screen Negative (NEGATIVE) Urine Amphetamines Screen Negative (NEGATIVE) Urine Benzodiazepines Screen Negative (NEGATIVE) Urine Cocaine Screen Negative (NEGATIVE) Urine Marijuana (THC) Screen Positive (NEGATIVE) H White Blood Count 6.7 K/UL (4.8-10.8) Red Blood Count 3.75 M/UL (4.20-5.40) L Hemoglobin 12.7 G/DL (12.0-16.0) Hematocrit 36.9 % (37.0-47.0) L Mean Corpuscular Volume 98 FL (80-99) Mean Corpuscular Hemoglobin 34.0 PG (27.0-31.0) H Mean Corpuscular Hemoglobin Concent 34.6 G/DL (32.0-36.0) Red Cell Distribution Width 11.9 % (11.6-14.8) Platelet Count 203 K/UL (150-450) Mean Platelet Volume 8.6 FL (6.5-10.1) Neutrophils (%) (Auto) 45.7 % (45.0-75.0) Lymphocytes (%) (Auto) 43.3 % (20.0-45.0) Monocytes (%) (Auto) 9.2 % (1.0-10.0) Eosinophils (%) (Auto) 0.6 % (0.0-3.0) Basophils (%) (Auto) 1.3 % (0.0-2.0) Sodium Level 139 MMOL/L (136-145) Potassium Level 3.3 MMOL/L (3.5-5.1) L Chloride Level 106 MMOL/L (98-107) Carbon Dioxide Level 24 MMOL/L (21-32) Anion Gap 9 mmol/L (5-15) Blood Urea Nitrogen 4 mg/dL (7-18) L Creatinine 0.6 MG/DL (0.55-1.30) Estimat Glomerular Filtration Rate > 60 mL/min (>60) Glucose Level 88 MG/DL (74-106) Calcium Level 7.5 MG/DL (8.5-10.1) L Magnesium Level 1.7 MG/DL (1.8-2.4) L Height (Feet): 5 Height (Inches): 4.00 Weight (Pounds): 130 General Appearance: WD/WN, no apparent distress, alert, thin Cardiovascular: normal rate Respiratory/Chest: normal breath sounds, no respiratory distress Abdominal Exam: normal bowel sounds, non tender, soft Extremities: normal range of motion, non-tender Britt Mendoza N.P. Feb 25, 2017 11:00 GILES GALLO Mar 01, 2017 11:35
[2017-02-25] MEDS ORDERED: D5 1/2NS 1000ml IV ONE ×2 (16:03)
[2017-02-25] MEDS ORDERED: 1/2 NS 1000ml IV ONE (16:03)
--- NOTE | 2017-02-28 08:38 | Discharge Summary ---
Discharge Summary Hospital Course Date of Admission Feb 23, 2017 at 11:09 Date of Discharge Feb 25, 2017 at 16:04 Admitting Diagnosis interactable vomiting HPI Reji Theodore is a 36 year old female who was admitted on Feb 23, 2017 at 11:09 for Interactable Vomiting Hospital Course dc summary #[id number] Discharge Medications Continued Medications: Ondansetron* (Zofran*) 4 Mg Tablet 4 MG ORAL Q6H PRN for Nausea & Vomiting, #30 TAB Discharge Condition Upon Discharge: stable Discharge Disposition Patient was discharged to Home (01) Discharge Diagnoses: Asaf (Heather)Luly NP Feb 28, 2017 08:38
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
== END 2017-02-25 16:04 | disposition home or self-care (01) | DRG 249 ==
LOC: EDBD 07:40 → EMR 08:08 → 3E 11:09 → EDBEDREQ 13:44 → 3E 15:10
DX: E86.0 Dehydration (principal); K52.9 Noninfective gastroenteritis and colitis, unspecified; E83.42 Hypomagnesemia; J44.9 Chronic obstructive pulmonary disease, unspecified; E87.6 Hypokalemia; F12.90 Cannabis use, unspecified, uncomplicated
CPT/HCPCS: 36415; 76700; 80048; 80053; 80307; 81003; 81025; 82150; 83690; 83735; 85025; 85730; 99285; J2405; J2765; J8499

== ENCOUNTER 2017-03-04 20:11 | Emergency (ER) | payer OTHER ==
[~2017-03-04] VITALS: Ht 162.6 cm; Wt 47.6 kg
[2017-03-04 20:46] VITALS: BP 114/73
[2017-03-04] MEDS ORDERED: ALBUTEROL SULF8.5 GM INH (21:21)
[2017-03-04] MEDS ORDERED: IBUPROFEN600 MG ORAL (21:21)
[2017-03-04] MEDS ORDERED: PREDNISONE20 MG ORAL (21:21)
--- NOTE | 2017-03-04 21:22 | Emergency Room Report ---
History of Present Illness General Chief Complaint: Upper Respiratory Illness Source: Patient Present Illness HPI This is a 36-year-old female with history of asthma as a kid. She presents with chief complaint of cough congestion. Also with headache and sore throat. Coughing resulting and burning is in her chest. Onset for last 2 days. Also has subjective fever and chills. Better with Tylenol. No nausea no vomiting. She was just discharged from the hospital for a gastroenteritis. She was well for one day until symptoms started. No sick contact. Allergies: Coded Allergies: CITRIC ACID (Verified Allergy, Unknown, 03/06/16) Patient History Past Medical History: see triage record, old chart reviewed, asthma Past Surgical History: other Pertinent Family History: none Social History: Denies: smoking Last Menstrual Period: 02/27/16 Now: No Immunizations: other Reviewed Nursing Documentation: PMH: Agreed, PSxH: Agreed Nursing Documentation-PMH Past Medical History: No History, Except For Hx Cardiac Problems: No - Bronchitis Hx Asthma: Yes Hx Cancer: No Hx Gastrointestinal Problems: No Hx Neurological Problems: No Review of Systems Constitutional: Reports: chills, fever, weakness Eye: Denies: eye pain, blurred vision ENT: Reports: throat pain Respiratory: Reports: cough, shortness of breath Cardiovascular: Denies: chest pain, palpitations Gastrointestinal: Denies: abdominal pain, diarrhea, nausea, vomiting Musculoskeletal: Denies: back pain, joint pain Skin: Denies: rash Neurological: Denies: headache, numbness Endocrine: Denies: increased thirst, increased urine Hematologic/Lymphatic: Denies: easy bruising All Other Systems: negative except mentioned in HPI Physical Exam Vital Signs Date Time Temp Pulse Resp B/P (MAP) Pulse Ox O2 Delivery O2 Flow Rate FiO2 03/04/17 20:35 99.1 101 16 114/73 99 Room Air vitals unremarkable Sp02 EP Interpretation: reviewed, normal General Appearance: well appearing, no apparent distress, alert Head: normocephalic, atraumatic Eyes: bilateral eye PERRL, bilateral eye EOMI ENT: hearing grossly normal, normal pharynx Neck: full range of motion, supple, no meningismus Respiratory: chest non-tender, lungs clear, normal breath sounds, other - Coughing with inspiration Cardiovascular #1: regular rate, rhythm, no murmur Gastrointestinal: normal bowel sounds, non tender, no mass, no organomegaly, no bruit, non-distended Musculoskeletal: back normal, gait/station normal, normal range of motion Psychiatric: mood/affect normal Skin: warm/dry Medical Decision Making Diagnostic Impression: Primary Impression: Influenza-like illness ER Course Patient without a viral illness consistent with influenza like illness this. No evidence of pneumonia, meningitis, or other serious bacterial infection. We' ll treat symptomatically. She is outside of the window for Tamiflu. Last Vital Signs Date Time Temp Pulse Resp B/P (MAP) Pulse Ox O2 Delivery O2 Flow Rate FiO2 03/04/17 20:35 99.1 101 16 114/73 99 Room Air Status: improved Disposition: HOME, SELF-CARE Condition: Stable Scripts Prednisone* (PREDNISONE*) 20 Mg Tablet 60 MG ORAL DAILY, #15 TAB Prov: VITO BELL M.D. 03/04/17 Ibuprofen* (MOTRIN*) 600 Mg Tablet 600 MG ORAL Q8H Y for For Pain, #30 TAB 0 Refills Prov: VITO BELL M.D. 03/04/17 Albuterol Sulfate* (ALBUTEROL SULFATE MDI*) 8.5 Gm Hfa.aer.ad 2 PUFF INH Q4H Y for cough/wheezing, #1 EA 0 Refills Prov: VITO BELL M.D. 03/04/17 Patient Instructions: Upper Respiratory Infection, Adult Additional Instructions: Followup with your Dr. in 7 days. Rest. Increase fluid. Return if symptom worsen. VITO BELL M.D. Mar 04, 2017 21:22
[2017-03-04 21:53] VITALS: BP 114/73
== END 2017-03-04 21:53 | disposition home or self-care (01) ==
LOC: EMR 20:43
DX: J11.1 Influenza due to unidentified influenza virus with other respiratory manifestations (principal); J45.909 Unspecified asthma, uncomplicated
CPT/HCPCS: 99284

== ENCOUNTER 2017-03-26 14:24 | Emergency (ER) | payer OTHER ==
[~2017-03-26] VITALS: Ht 154.9 cm; Wt 45.4 kg
[~2017-03-26 14:24] MED LIST changes: +PREDNISONE20 MG ORAL
--- NOTE | 2017-03-26 15:27 | Emergency Room Report ---
History of Present Illness General Chief Complaint: General Complaint Source: Patient Present Illness HPI 36 YO Female presents to the ED c/o cough, nasal congestion, rhinorrhea, 7/ 10 in severity generalized body-aches, fevers, chills and intermittent 4/10 in severity frontal headaches x 30 days. Denies sore throat, ear pain, high fevers , lethargy, neck pain/stiffness, irritability, photophobia dehydration, Dizziness, N/V/D. Denies Cp, Palpitations, LOC, AMS, seizures, paresthesias, or changes in Hearing or vision, no Sudden severe PICKETT. Allergies: Coded Allergies: CITRIC ACID (Verified Allergy, Unknown, 03/06/16) Patient History Past Medical History: see triage record Past Surgical History: none Pertinent Family History: none Last Menstrual Period: Current Now: No Reviewed Nursing Documentation: PMH: Agreed, PSxH: Agreed Nursing Documentation-PMH Hx Cardiac Problems: No - Bronchitis Hx Asthma: Yes Hx Cancer: No Hx Gastrointestinal Problems: No Hx Neurological Problems: No Review of Systems All Other Systems: negative except mentioned in HPI Physical Exam Vital Signs Date Time Temp Pulse Resp B/P (MAP) Pulse Ox O2 Delivery O2 Flow Rate FiO2 03/26/17 14:54 98.8 108 19 133/92 98 Room Air Sp02 EP Interpretation: reviewed, normal General Appearance: no apparent distress, alert, GCS 15, non-toxic Head: normocephalic, atraumatic ENT: hearing grossly normal, normal voice Neck: full range of motion, no meningismus, tender lateral - mild tenderness left lateral paracervical Respiratory: chest non-tender, lungs clear, normal breath sounds, no respiratory distress, no wheezing, speaking full sentences Cardiovascular #1: regular rate, rhythm Rectal: deferred Genitourinary: normal inspection Musculoskeletal: back normal, gait/station normal, normal range of motion, non- tender Neurologic: alert, oriented x3, responsive, motor strength/tone normal, sensory intact, normal gait, speech normal, grossly normal Psychiatric: judgement/insight normal Skin: normal color, no rash, warm/dry, well hydrated Lymphatic: no adenopathy Medical Decision Making PA Attestation Dr. Senior is my supervising Physician whom patient management has been discussed with. Diagnostic Impression: Primary Impression: Upper respiratory infection Qualified Codes: J06.9 - Acute upper respiratory infection, unspecified Additional Impression: Viral syndrome ER Course 36 YO Female presents to the ED c/o cough, nasal congestion, rhinorrhea, 7/ 10 in severity generalized body-aches, fevers, chills and intermittent 4/10 in severity frontal headaches x 30 days. Denies sore throat, ear pain, high fevers , lethargy, neck pain/stiffness, irritability, photophobia dehydration, Dizziness, N/V/D. Denies Cp, Palpitations, LOC, AMS, seizures, paresthesias, or changes in Hearing or vision, no Sudden severe PICKETT. Ddx considered but are not limited to URI, pneumonia, PE, strep pharyngitis, meningitis, influenza, OM/OE just to name a few. Vital signs: Pt. is afebrile, the remaining VS are WNL H&PE are most consistent with Viral Syndrome suspicious for Influenza will treat clinically - no meningeal signs, Lungs are clear and oropharynx is not involved, no evidence of bacterial infection at this time. ORDERS: -CXR: Unremarkable ED INTERVENTIONS: None required at this time. d/w pt. conservative treatment, and to follow up with a primary care provider. pt given a list of primary care clinics for follow up. d/w pt. to return to the ED with worsening or new symptoms. DISCHARGE: At this time pt. is stable for d/c to home. Will provide printed patient care instructions, and any necessary prescriptions. Care plan and follow up instructions have been discussed with the patient prior to discharge. Chest X-Ray Diagnostic Results Chest X-Ray Diagnostic Results : Chest X-Ray Ordered: Yes # of Views/Limited/Complete: 1 View Indication: Other - Cough x 1 month. EP Interpretation: Yes NOLVIA Xray: Interpretation reviewed, by supervising MD, and agrees with findings. Interpretation: no consolidation, no effusion, no pneumothorax, no acute cardiopulmonary disease Impression: No acute disease Electronically Signed by: Charla Meek PA-C Last Vital Signs Date Time Temp Pulse Resp B/P (MAP) Pulse Ox O2 Delivery O2 Flow Rate FiO2 03/26/17 14:54 98.8 108 19 133/92 98 Room Air Disposition: HOME, SELF-CARE Condition: Stable Scripts Aspirin/Acetaminophen/Caffeine (EXCEDRIN MIGRAINE GELTAB) 1 Each Tablet 1 EACH PO Q6HR, #20 TAB Prov: Charla Meek P.AIsauro 03/26/17 Oxymetazoline HCl (Afrin) 15 Ml Mehama 2 SPRAYS NASAL TWICE A DAY for 3 Days, #30 SPRAY ONLY USE FOR 3 DAYS. Prov: Charla Meek 03/26/17 Benzonatate* (TESSALON PERLE*) 100 Mg Capsule 100 MG ORAL THREE TIMES A DAY, #30 PERLE Prov: Charla Meek 03/26/17 Codeine/Promethazine Hcl* (PROMETHAZINE-CODEINE SYRUP*) 118 Ml Syrup 5 ML ORAL Q6H Y for For Cough, #120 ML 0 Refills Prov: Charla Meek 03/26/17 Patient Instructions: Viral Respiratory Infection Additional Instructions: Take medications as directed. Follow up with a Primary Care Provider in 3-5 days, even if your symptoms have resolved. --Please review list of primary care clinics, if you do not already have a primary care provider Return sooner to ED if new symptoms occur, or current symptoms become worse. Do not drink alcohol, drive, or operate heavy machinery while taking Cough Syrup as this may cause drowsiness. - Please note that this Emergency Department Report was dictated using [employer] producer technology software, occasionally this can lead to erroneous entry secondary to interpretation by the dictation equipment. Charla Meek Mar 26, 2017 15:27
[2017-03-26] MEDS ORDERED: AFRIN NASAL SPR30 ML NASAL (15:57)
[2017-03-26] MEDS ORDERED: TESSALON PERLE100 MG ORAL (15:57)
[2017-03-26] MEDS ORDERED: EXCEDRIN MIGRA1 EACH PO (15:57)
[2017-03-26] MEDS ORDERED: PROMETHAZINE-C118 M1 ORAL (15:57)
[2017-03-26 16:15] VITALS: BP 127/88
--- NOTE | 2017-03-27 09:54 | Diagnostic Imaging Report ---
Indication: Chest pain Technique: One view of the chest Comparison: 02/20/2013 Findings: Lungs and pleural spaces are clear. Heart size is normal . No significant change Impression: No acute process
== END 2017-03-26 16:15 | disposition home or self-care (01) ==
LOC: EMR 15:00
DX: J06.9 Acute upper respiratory infection, unspecified (principal); B34.9 Viral infection, unspecified; J45.909 Unspecified asthma, uncomplicated
CPT/HCPCS: 71045; 99284

== ENCOUNTER 2018-01-03 15:53 | Emergency (ER) | payer OTHER ==
[~2018-01-03] VITALS: Ht 154.9 cm; Wt 47.6 kg
[~2018-01-03 15:53] MED LIST changes: +AFRIN NASAL SPR30 ML NASAL; +EXCEDRIN MIGRA1 EACH PO; +FLUTICASONE PRO16 G1 NASAL; +TESSALON PERLE100 MG ORAL; +TYLENOL EXTRA500 MG ORAL
[2018-01-03 16:05] VITALS: BP 124/83
[2018-01-03] MEDS ORDERED: NKM (16:08)
--- NOTE | 2018-01-03 16:25 | Emergency Room Report ---
History of Present Illness General Chief Complaint: Nausea Source: Patient, Medical Record Present Illness HPI 37-year-old female patient presents ER complaining of nausea and vomiting for the past 2 days. Denies head trauma. Denies vision changes. Denies dizziness or syncope. Denies abdominal pain. Denies fever, chest pain, shortness of breath. Reports vomiting has been of food, denies hematemesis. Denies projectile vomiting. Denies drinking or drug use. Reports took 2 tests out of concern for possible , states was negative. Reports his been able tolerate fluids by mouth since that time. Denies diarrhea. Denies constipation. Denies PICKETT, neck pain. Allergies: Coded Allergies: CITRIC ACID (Verified Allergy, Unknown, 03/06/16) Patient History Past Medical History: see triage record Last Menstrual Period: 12/05/17 Reviewed Nursing Documentation: PMH: Agreed; PSxH: Agreed Nursing Documentation-PMH Past Medical History: No History, Except For Hx Cardiac Problems: No - Bronchitis Hx Asthma: Yes Hx COPD: No - Eczema Hx Cancer: No Hx Gastrointestinal Problems: No Hx Neurological Problems: No Review of Systems All Other Systems: negative except mentioned in HPI Physical Exam Vital Signs Date Time Temp Pulse Resp B/P (MAP) Pulse Ox O2 Delivery O2 Flow Rate FiO2 01/03/18 16:05 98.4 91 18 124/83 98 Room Air Sp02 EP Interpretation: reviewed, normal General Appearance: well appearing, no apparent distress, alert, GCS 15, non- toxic Head: normocephalic, atraumatic Eyes: bilateral eye normal inspection, bilateral eye PERRL ENT: hearing grossly normal, normal pharynx, no angioedema, normal voice, uvula midline, moist mucus membranes Neck: full range of motion, no bony tend Respiratory: lungs clear, normal breath sounds, no rhonchi, no respiratory distress, no accessory muscle use, no wheezing, speaking full sentences Cardiovascular #1: regular rate, rhythm, no edema Gastrointestinal: non tender, soft, no mass, non-distended, no guarding, no rebound, other - negative Mtz, negative Rovsing Genitourinary: no CVA tenderness Musculoskeletal: back normal, digits/nails normal, gait/station normal, normal range of motion, non-tender Neurologic: alert, oriented x3, responsive, informatics developer III-XII nml as tested, motor strength/tone normal, sensory intact, cerebellar normal, normal gait, speech normal Psychiatric: mood/affect normal Skin: no rash Medical Decision Making PA Attestation Dr. Sanabria is my supervising Physician whom patient management has been discussed with. Diagnostic Impression: Primary Impression: Nausea and vomiting in adult patient ER Course Pt. presents to the ED c/o vomiting. Ddx considered but are not limited to gastritis, viral syndrome, food poisoning , GERD, , drug use, alcohol use. No eye yellowing, no circumoral pallor, cap refill less than 2 seconds, low suspicion for anemia. No abdominal TTP, patient resting comfortably, nontoxic appearing, does not require imaging or labs at this time. Vital signs: are WNL, pt. is afebrile ER COURSE: Physical exam benign. no abdominal TTP. Zofran provided to patient. Patient able to tolerate PO fluids at this time. Patient did not vomit while in the ER. Talking normally without difficulty. UA shows no signs of infection, urine negative. Discussed results with patient. Likely viral gastritis causing vomiting symptoms, advised patient BRAT diet, drink plenty fluids. Patient does not require abx at this time; afebrile, no recent travel, no blood in stool. Return to ER if symptoms persist Drink fluids as tolerated to prevent dehydration. ER precautions given. DISCHARGE Rx provided for Zofran At this time pt is stable for d/c to home. Patient is resting comfortably, in no acute distress, nontoxic appearing, talking without difficulty. Patient to take medications as instructed Will provide with patient care instructions and any necessary prescriptions. Care plan and follow-up instructions provided. Patient instructed to follow-up with primary care provider in 3 - 5 days. Patient questions asked and answered. Patient reports understanding and agreement to treatment plan.ER precautions given. Patient instructed to return to ER immediately for any new or worsening of symptoms including but not limited to increasing SOB, persistent fever, intractable vomiting. - Please note that this Emergency Department Report was dictated using [employer] plan specialist technology software, occasionally this can lead to erroneous entry secondary to interpretation by the dictation equipment. Labs Test 01/03/18 16:27 Urine Color Pale yellow Urine Appearance Clear Urine pH 7 (4.5-8.0) Urine Specific [place] 1.010 (1.005-1.035) Urine Protein 1+ (NEGATIVE) Urine Glucose (UA) Negative (NEGATIVE) Urine Ketones Negative (NEGATIVE) Urine Blood Negative (NEGATIVE) Urine Nitrite Negative (NEGATIVE) Urine Bilirubin Negative (NEGATIVE) Urine Urobilinogen Normal MG/DL (0.0-1.0) Urine Leukocyte Esterase 1+ (NEGATIVE) Urine RBC 0-2 /HPF (0 - 2) Urine WBC 2-4 /HPF (0 - 2) Urine Squamous Epithelial Cells Moderate /LPF (NONE/OCC) Urine Bacteria Few /HPF (NONE) Urine HCG, Qualitative Negative (NEGATIVE) Last Vital Signs Date Time Temp Pulse Resp B/P (MAP) Pulse Ox O2 Delivery O2 Flow Rate FiO2 01/03/18 16:05 98.4 91 18 124/83 98 Room Air Status: improved Disposition: HOME, SELF-CARE Condition: Stable Scripts Ondansetron* (ZOFRAN*) 4 Mg Tablet 4 MG ORAL Q6H PRN for Nausea & Vomiting, #10 TAB Prov: Tejinder Nance 01/03/18 Patient Instructions: Nausea and Vomiting, Adult Additional Instructions: Followup with primary care provider in 3 -5 days. Take medications as directed. Patient questions asked and answered. ER precautions given, patient instructed to return to ER immediately for any new or worsening of symptoms. Tejinder Nance Jan 03, 2018 16:25
[2018-01-03 17:15] LABS: APPEARANCE,URINE CLEAR; BILIRUBIN, URINE NEGATIVE (NEGATIVE); COLOR,URINE PALE YELLOW; GLUCOSE, URINE (UA) NEGATIVE (NEGATIVE); KETONES,URINE NEGATIVE (NEGATIVE); LEUKOCYTE ESTERASE ,URINE 1+ (NEGATIVE); NITRITE,URINE NEGATIVE (NEGATIVE); PH,URINE 7 (4.5-8.0); PROTEIN,URINE 1+ (NEGATIVE); UROBILINOGEN,URINE NORMAL MG/DL (0.0-1.0)
[2018-01-03] MEDS ORDERED: ZOFRAN4 M3 ORAL (17:50)
[2018-01-03 18:02] VITALS: BP 118/83
== END 2018-01-03 18:03 | disposition home or self-care (01) ==
LOC: EMR 16:43
DX: R11.2 Nausea with vomiting, unspecified (principal); J45.909 Unspecified asthma, uncomplicated
CPT/HCPCS: 81003; 81025; 99283

== ENCOUNTER 2018-01-03 20:52 | Emergency (ER) | payer OTHER ==
[~2018-01-03] VITALS: Ht 152.4 cm; Wt 47.6 kg
--- NOTE | 2018-01-03 21:52 | Emergency Room Report ---
History of Present Illness General Chief Complaint: Vomiting Source: Patient Present Illness HPI This is a 37-year-old female with no past medical history. She presents with chief complaint abdominal pain with nausea vomiting diarrhea. Onset for last 2- 3 days. Pain is sharp and crampy. Vomiting is perfused. Diarrhea is profuse. No blood or bile in vomiting. Diarrhea is watery. Now is just retching. Pain is 9 out of 10. [place] weak and tired. She was here earlier today and was given Zofran. She was discharged home. Nothing made it better. Any food or liquid make her throw up. Allergies: Coded Allergies: CITRIC ACID (Verified Allergy, Unknown, 03/06/16) Patient History Past Medical History: see triage record, old chart reviewed Past Surgical History: none Pertinent Family History: none Social History: Denies: smoking Last Menstrual Period: 12/05/2017 Now: No Immunizations: other Reviewed Nursing Documentation: PMH: Agreed; PSxH: Agreed Nursing Documentation-PMH Past Medical History: No Stated History Hx Cardiac Problems: No - Bronchitis Hx Asthma: Yes Hx COPD: No - Eczema Hx Cancer: No Hx Gastrointestinal Problems: No Hx Neurological Problems: No Review of Systems Eye: Denies: eye pain, blurred vision ENT: Denies: ear pain, nose congestion, throat swelling Respiratory: Denies: cough, shortness of breath Cardiovascular: Denies: chest pain, palpitations Gastrointestinal: Reports: abdominal pain, diarrhea, nausea, vomiting Musculoskeletal: Denies: back pain, joint pain Skin: Denies: rash Neurological: Denies: headache, numbness Endocrine: Denies: increased thirst, increased urine Hematologic/Lymphatic: Denies: easy bruising All Other Systems: negative except mentioned in HPI Physical Exam Vital Signs Date Time Temp Pulse Resp B/P (MAP) Pulse Ox O2 Delivery O2 Flow Rate FiO2 01/03/18 21:25 98.2 69 18 150/95 100 Room Air vitals with high blood pressure Sp02 EP Interpretation: reviewed, normal General Appearance: well appearing, no apparent distress, alert Head: normocephalic, atraumatic Eyes: bilateral eye PERRL, bilateral eye EOMI ENT: hearing grossly normal, normal pharynx Neck: full range of motion, supple, no meningismus Respiratory: chest non-tender, lungs clear, normal breath sounds Cardiovascular #1: regular rate, rhythm, no murmur Gastrointestinal: normal bowel sounds, no mass, no organomegaly, no bruit, non- distended, abnormal bowel sounds - hyperactive, tenderness - mild, diffuse Musculoskeletal: back normal, gait/station normal, normal range of motion Neurologic: alert, oriented x3 Psychiatric: mood/affect normal Skin: warm/dry Medical Decision Making Diagnostic Impression: Primary Impression: Abdominal pain Qualified Codes: R10.84 - Generalized abdominal pain Additional Impressions: Nausea vomiting and diarrhea Hypokalemia ER Course Patient presents with intractable vomiting and diarrhea. She is feeling better but unable to tolerate by mouth intake with little bit of fluid. Because of this we'll admit. CT scan show enteritis. This is most likely acute gastroenteritis. I discussed case with Dr. Davis who accepted pt for transfer to [facility]. Lab Results Impression labs with hypokalemia CT/MRI/US Diagnostic Results CT/MRI/US Diagnostic Results : Imaging Test Ordered: CT abdomen and pelvis Impression Read by radiologist. Enteritis. No evidence of acute appendicitis. Ovarian cyst. Last Vital Signs Date Time Temp Pulse Resp B/P (MAP) Pulse Ox O2 Delivery O2 Flow Rate FiO2 01/03/18 21:25 98.2 69 18 150/95 100 Room Air Status: improved [facility] Condition: Stable Shane Mendoza MD Jan 03, 2018 21:52
[2018-01-03] MEDS ORDERED: Ketorolac 30mg Inj IV ONE (22:00)
[2018-01-03 22:20] LABS: BASOPHILS % (AUTO) 2.5 % (0.0-2.0); EOSINOPHILS % (AUTO) 0.2 % (0.0-3.0); HEMATOCRIT 42.2 % (37.0-47.0); HEMOGLOBIN 15.3 G/DL (12.0-16.0); LYMPHOCYTES % (AUTO) 24.5 % (20.0-45.0); MEAN CORPUSCULAR VOLUME 92 FL (80-99); MONOCYTES % (AUTO) 12.7 % (1.0-10.0); PLATELET COUNT 246 K/UL (150-450); RED CELL DISTRIBUTION WIDTH 11.6 % (11.6-14.8); WHITE BLOOD COUNT 5.1 K/UL (4.8-10.8)
[2018-01-03 22:24] LABS: ANION GAP 12 mmol/L (5-15); BLOOD UREA NITROGEN 11 mg/dL (7-18); CALCIUM 9.7 MG/DL (8.5-10.1); CARBON DIOXIDE 25 MMOL/L (21-32); CHLORIDE 97 MMOL/L (98-107); CREATININE 0.8 MG/DL (0.55-1.30); POTASSIUM 2.8 MMOL/L (3.5-5.1); SODIUM 134 MMOL/L (136-145)
[2018-01-03] MEDS ORDERED: Metoclopramide 10mg/2ml Inj ONE (22:24)
[2018-01-03] MEDS ORDERED: Metoclopramide 10mg/2ml Inj IVP ONE (22:30)
[2018-01-04] MEDS ORDERED: Isovue-300 100ml vial INJ PRN (00:30)
[2018-01-04 01:34] VITALS: BP 123/85
[2018-01-04] MEDS ORDERED: Metoclopramide 10mg/2ml Inj IVP ONE (03:00)
[2018-01-04 03:13] VITALS: BP 131/79
[2018-01-04 03:22] VITALS: BP 131/79
--- NOTE | 2018-01-04 09:28 | Diagnostic Imaging Report ---
Clinical Indication: Abdominal pain for 3 days Technique: No oral contrast utilized, per emergency room physician request IV administration nonionic contrast. Venous phase spiral acquisition obtained through the abdomen and pelvis. Multiplanar reconstructions were generated. Total dose length product 388.25 mGycm. CTDIvol(s) 8.9 mGy. Dose reduction achieved using automated exposure control Comparison: none. Reference made to ultrasound abdomen 02/23/2017 Findings: There is a small amount of free fluid within the pelvis. No evidence of diverticulosis or diverticulitis. Small amount of contrast material, presumably from an earlier contrast study, is seen scattered throughout the proximal colon. The appendix is normal. There is equivocal minimal colon and small bowel wall thickening, although this is probably an artifact of under distention. Somewhat prominent mesenteric root nodes are noted. No small bowel distention. No free intraperitoneal gas. The distal esophagus, stomach, duodenum are unremarkable. Liver, gallbladder, bile ducts, pancreas, spleen, adrenals, left kidney are unremarkable. Right kidney demonstrates subcentimeter low-attenuation lesions which are too small to characterize, most likely benign simple cysts. No retroperitoneal or mesenteric mass or adenopathy. The uterus and right ovary are unremarkable. Left ovary demonstrates a 3 cm cyst. The included lung bases are clear. The bones are unremarkable. Impression: Very questionable minimal small bowel wall thickening of colon wall thickening and slightly prominent mesenteric root nodes. If real, could indicate mild enteritis/colitis changes. No acute abnormality otherwise Free pelvic fluid, presumed physiologic 3 cm left ovarian cyst, presumed benign. No further follow-up necessary This agrees with the preliminary interpretation provided overnight by [facility] teleradiology service. The CT scanner at [facility] is accredited by the [employer] and the scans are performed using protocols designed to limit radiation exposure to as low as reasonably achievable to attain images of sufficient resolution adequate for diagnostic evaluation.
== END 2018-01-04 03:24 | disposition short-term general hospital (02) ==
LOC: EMR 21:46
DX: R10.9 Unspecified abdominal pain (principal); R11.2 Nausea with vomiting, unspecified; E87.6 Hypokalemia; J45.909 Unspecified asthma, uncomplicated
CPT/HCPCS: 36415; 74177; 80048; 85025; 96365; 96375; 96376; 99284; J1885; J2405; J2765; J3480; Q9967

== ENCOUNTER 2018-04-08 11:17 | Emergency (ER) | payer OTHER ==
[~2018-04-08] VITALS: Ht 154.9 cm; Wt 45.4 kg
[~2018-04-08 11:17] MED LIST changes: +PHENERGAN25 M1 ORAL
--- NOTE | 2018-04-08 11:24 | NUR ---
ED Nurse Note: PT CALLED FROM WAITING ROOM BUT NOT THERE.
[2018-04-08] MEDS ORDERED: NKM (11:36)
[2018-04-08 11:38] VITALS: BP 111/67
--- NOTE | 2018-04-08 11:38 | NUR ---
ED Nurse Note: PT WALKED IN TO ER TODAY FROM HOME. AOX4. PT C/O FACIAL BREAK OUT WITH SOME ITCHING NEAR NOSE AND LEFT EYE BROW X 1 WEEK AGO. PT CONCERNED THAT IT MAY BE RINGWORM. PT DOES STATE SHE HAS HX OF ECZEMA BUT DOES NOT THINK THIS IS AN ECZEMA BREAKOUT. PT DENIES ANY PAIN. PT STATES BREAKOUT IS LOCALIZED TO FACE.
[2018-04-08] MEDS ORDERED: CLOTRIMAZOLE30 ML TP (11:52)
[2018-04-08] MEDS ORDERED: KENALOG 0.5% CR15 GM APPLIC (11:52)
[2018-04-08 11:56] VITALS: BP 114/68
--- NOTE | 2018-04-08 11:57 | NUR ---
ED Nurse Note: PT LAYING PEACEFULLY IN BED IN NAD. AOX4. PRESCRIPTIONS AND DISCHARGE PAPERWORK EXPLAINED TO PT. PT VERBALIZES UNDERSTANDING AND ALL QUESTIONS ANSWERED. PRESCRIPTIONS AND DISCHARGE PAPERWORK GIVEN TO PT AND ID WRISTBAND REMOVED. PT WALKED OUT OF ER WITH STEADY GAIT AND ALL BELONGINGS.
--- NOTE | 2018-04-09 07:05 | Emergency Room Report ---
History of Present Illness General Chief Complaint: Skin Rash/Abscess Source: Patient Present Illness HPI 37-year-old female presents ED for evaluation. Patient states she has a rash times one week. Localizes a circular spot just medial to her left eyebrow. States it is itchy. Denies any pain. Denies any discharge. Denies any known food or drug allergies. Patient is concerned about a fungal infection. Denies any sick contacts or recent travel. Denies any spots or lesions anywhere else. No other aggravating relieving factors. Denies any other associated symptoms Allergies: Coded Allergies: CITRIC ACID (Verified Allergy, Unknown, 04/08/18) Patient History Past Medical History: asthma Past Surgical History: none Pertinent Family History: none Social History: Denies: smoking, alcohol use, drug use Last Menstrual Period: 03/29/18 Now: No Immunizations: UTD Reviewed Nursing Documentation: PMH: Agreed; PSxH: Agreed Nursing Documentation-PMH Past Medical History: No History, Except For Hx Cardiac Problems: No - Bronchitis Hx Asthma: Yes Hx COPD: No - Eczema Hx Cancer: No Hx Gastrointestinal Problems: No Hx Neurological Problems: No Review of Systems All Other Systems: negative except mentioned in HPI Physical Exam Vital Signs Date Time Temp Pulse Resp B/P (MAP) Pulse Ox O2 Delivery O2 Flow Rate FiO2 04/08/18 11:32 98.2 96 16 111/67 97 Room Air Sp02 EP Interpretation: reviewed, normal General Appearance: no apparent distress, alert, GCS 15, non-toxic Head: normocephalic Eyes: bilateral eye normal inspection, bilateral eye PERRL ENT: normal ENT inspection Neck: normal inspection Respiratory: normal inspection Cardiovascular #1: normal inspection Gastrointestinal: normal inspection Rectal: deferred Genitourinary: no CVA tenderness Musculoskeletal: normal inspection Neurologic: alert, oriented x3, responsive, motor strength/tone normal, sensory intact, speech normal Psychiatric: normal inspection Skin: rash - circular satellite lesion just medial to L eyebrow. central clearing noted. nonerythematous. nonindurated. no discharge Lymphatic: normal inspection Medical Decision Making Diagnostic Impression: Primary Impression: Rash ER Course Hospital Course 37-year-old female presents to ED with rash to face Differential diagnoses include: Cellulitis, dermatitis, insect bite, abscess Clinical course Patient placed on stretcher. After initial history, physical exam reveals a young female in no acute distress. On exam there is a isolated circular satellite lesion just medial to the left eyebrow. There appears to be a raised edge with central clearing. Not erythematous or indurated. No discharge. No other lesions elsewhere. Discussed findings with patient. Appears fungal such as ringworm. Secondary considerations are eczema patient does have a history of eczema but states this feels and looks a little different. I explained to patient we'll treat initially as fungal infection. We'll prescribe clotrimazole. If it does not resolve after one week or show improvement we'll also prescribe triamcinolone to treat as eczema. Patient needs to be seen by dermatology as outpatient. Patient will go to her PMD for referral Diagnosis - rash stable and discharged to home with prescription for Clotrimazole, triamcinolone . Instructed to followup with dermatology. Instructed return to ED if symptoms recur or worsen Last Vital Signs Date Time Temp Pulse Resp B/P (MAP) Pulse Ox O2 Delivery O2 Flow Rate FiO2 04/08/18 11:56 98.4 92 17 114/68 99 Room Air Status: improved Disposition: HOME, SELF-CARE Condition: Stable Scripts Triamcinolone Acet (Triamcinolone Acetonide) 15 Gm Cream..g. 15 GM APPLIC BID, #15 GM Prov: Hever White MD 04/08/18 Clotrimazole (CLOTRIMAZOLE) 30 Ml Solution 30 ML TP BID, #30 ML Prov: Hever White MD 04/08/18 Referrals: [facility]REF[facility],REFERRING (PCP) Miladis [facility] Patient Instructions: Eczema, Body Ringworm Hever White MD Apr 09, 2018 07:05
== END 2018-04-08 12:31 | disposition home or self-care (01) ==
LOC: EMR 11:57
DX: R21 Rash and other nonspecific skin eruption (principal); J45.909 Unspecified asthma, uncomplicated
CPT/HCPCS: 99282

== ENCOUNTER 2018-05-19 14:51 | Emergency (ER) | payer OTHER ==
[~2018-05-19] VITALS: Ht 152.4 cm; Wt 48.1 kg
[~2018-05-19 14:51] MED LIST changes: +CLOTRIMAZOLE30 ML TP; +KENALOG 0.5% CR15 GM APPLIC
[2018-05-19 15:10] VITALS: BP 109/78
[2018-05-19] MEDS ORDERED: KENALOG 0.5% CR15 GM APPLIC (15:41)
[2018-05-19 15:56] VITALS: BP 130/62
--- NOTE | 2018-05-19 16:52 | Emergency Room Report ---
History of Present Illness General Chief Complaint: Skin Rash/Abscess Source: Patient Present Illness HPI 38-year-old female presents ED for evaluation. Patient complaining of a rash. States that she notes this area of discoloration near her left eye. Has been there for some time. Was seen here last month for the same thing. Was initially treated as fungal and prescribed clotrimazole. States it did not help. States it is itchy. Denies pain. Notes history of eczema but states that did not appear like her other eczemal rashes. Denies any food or drug allergies. Denies any throat tightness or shortness of breath. No other aggravating relieving factors. Denies any other associated symptoms Allergies: Coded Allergies: CITRIC ACID (Verified Allergy, Unknown, 05/19/18) Patient History Past Medical History: other - eczema Past Surgical History: none Pertinent Family History: none Social History: Denies: smoking, alcohol use, drug use Last Menstrual Period: 04/25/18 Now: No - unknown : 2 Para: 1 Immunizations: UTD Reviewed Nursing Documentation: PMH: Agreed; PSxH: Agreed Nursing Documentation-PMH Past Medical History: No History, Except For Hx Cardiac Problems: No - Bronchitis Hx Asthma: Yes Hx COPD: No - Eczema Hx Cancer: No Hx Gastrointestinal Problems: No Hx Neurological Problems: No Review of Systems All Other Systems: negative except mentioned in HPI Physical Exam Vital Signs Date Time Temp Pulse Resp B/P (MAP) Pulse Ox O2 Delivery O2 Flow Rate FiO2 05/19/18 14:59 98.1 80 18 109/78 99 05/19/18 15:10 Room Air Sp02 EP Interpretation: reviewed, normal General Appearance: no apparent distress, alert, GCS 15, non-toxic Head: normocephalic Eyes: bilateral eye normal inspection, bilateral eye PERRL ENT: hearing grossly normal, normal pharynx, no angioedema, normal voice Neck: full range of motion, supple, no meningismus, supple/symm/no masses Respiratory: chest non-tender, lungs clear, normal breath sounds, speaking full sentences Cardiovascular #1: regular rate, rhythm, no edema Gastrointestinal: normal inspection Rectal: deferred Genitourinary: no CVA tenderness Musculoskeletal: normal inspection Neurologic: alert, oriented x3, responsive, motor strength/tone normal, sensory intact, speech normal Psychiatric: normal inspection Skin: rash - 2cm circular hypopigmentation medial to L eye. nonerythematous. nonindurated Lymphatic: normal inspection Medical Decision Making Diagnostic Impression: Primary Impression: Rash ER Course Hospital Course 38-year-old female presents to ED with rash Differential diagnoses include: Cellulitis, dermatitis, insect bite, abscess Clinical course Patient placed on stretcher. After initial history, physical exam reveals a female in no acute distress. On exam is a circular hypopigmented lesion just medial to the left eye. Nonerythematous. No raised edges. She states she has moisturizer on at this time however without skin products the skin appears very flaky. I saw this patient last month for similar presentation. We did discuss the possibility of eczema versus fungal infection. Since patient stated it appeared somewhat differently that her eczema rashes we tried treatment initially with clotrimazole. I did however provide a prescription for triamcinolone at that time. Patient states she did not fill the prescription, possibly lost that prescription We will currently treat as eczema and prescribed triamcinolone. I expected to patient she needs to follow-up with her PMD for dermatology referral. States she has a dermatology appointment next month. Diagnosis - rash stable and discharged to home with prescription for Triamcinolone. Instructed to followup with PMD. Instructed return to ED if symptoms recur or worsen Last Vital Signs Date Time Temp Pulse Resp B/P (MAP) Pulse Ox O2 Delivery O2 Flow Rate FiO2 05/19/18 15:56 98.2 77 19 130/62 98 Room Air Status: improved Disposition: HOME, SELF-CARE Condition: Stable Scripts Triamcinolone Acet (Triamcinolone Acetonide) 15 Gm Cream..g. 15 GM APPLIC BID, #15 GM Prov: Hever White MD 05/19/18 Referrals: [facility],REFERRING (PCP) Patient Instructions: Eczema Hever White MD May 19, 2018 16:52
== END 2018-05-19 15:56 | disposition home or self-care (01) ==
LOC: EMR 15:29
DX: R21 Rash and other nonspecific skin eruption (principal); J45.909 Unspecified asthma, uncomplicated
CPT/HCPCS: 99282

== ENCOUNTER 2018-06-02 09:24 | Emergency (ER) | payer OTHER ==
[~2018-06-02] VITALS: Ht 152.4 cm; Wt 47.6 kg
[2018-06-02] MEDS ORDERED: Morphine Sulfate 4mg/ml Inj (IV USE ONLY) IVP ONE (09:45)
[2018-06-02] MEDS ORDERED: DiphenhydrAMINE 50mg/ml Inj IVP ONE (09:45)
[2018-06-02] MEDS ORDERED: Metoclopramide 10mg/2ml Inj IVP ONE (09:45)
--- NOTE | 2018-06-02 09:46 | Emergency Room Report ---
History of Present Illness General Chief Complaint: Nausea, Vomiting, and Diarrhea Source: Patient Present Illness HPI Patient presents with severe epigastric pain and vomiting. She has nothing more to throw up. She still is gagging. She last used marijuana yesterday. She states that she's not moved her bowels today. She feels cold in all extremities and some tingling in her hands. The pain is severe in her stomach. It's not radiating. She rates the pain 10/10. The patient's last period was May 21. She doesn't believe she is at this time. No fevers, chills, chest pain, palpitations, shortness of breath, no rashes, visual changes, headache. She presented here in January. Her initial visit she was transferred to [facility]. She represented with similar complaints. This was preceded by drinking alcohol. Allergies: Coded Allergies: CITRIC ACID (Verified Allergy, Unknown, 05/19/18) Patient History Past Medical History: see triage record, old chart reviewed Social History: Reports: smoking, alcohol use, drug use - [facility] Social History Narrative from home Last Menstrual Period: 05/27/2018 Reviewed Nursing Documentation: PMH: Agreed; PSxH: Agreed Nursing Documentation-PMH Past Medical History: No History, Except For Hx Cardiac Problems: No - Bronchitis Hx Asthma: Yes Hx COPD: No - Eczema Hx Cancer: No Hx Gastrointestinal Problems: No Hx Neurological Problems: No Review of Systems All Other Systems: negative except mentioned in HPI Physical Exam Vital Signs Date Time Temp Pulse Resp B/P (MAP) Pulse Ox O2 Delivery O2 Flow Rate FiO2 06/02/18 09:36 96.1 76 16 135/82 100 Room Air General Appearance: alert, GCS 15, moderate distress Eyes: bilateral eye normal inspection, bilateral eye PERRL, bilateral eye EOMI ENT: moist mucus membranes Neck: supple Respiratory: lungs clear, normal breath sounds Cardiovascular #1: regular rate, rhythm Cardiovascular #2: 2+ radial (L) Gastrointestinal: no rebound, guarding - minimal, tenderness, decreased bowel sounds Musculoskeletal: back normal, digits/nails normal, normal range of motion Neurologic: alert, oriented x3 Psychiatric: anxious Skin: normal inspection, no rash Medical Decision Making Diagnostic Impression: Primary Impression: Vomiting Qualified Codes: G43.A0 - Cyclical vomiting, not intractable Additional Impression: Epigastric abdominal pain ER Course Patient presents with severe epigastric pain and vomiting. Differential includes cyclic vomiting, gastritis, GERD, peptic ulcer disease, gallbladder disease, amongst others. She'll be evaluated with labs and a chest x- ray. She'll be treated with Pepcid IV hydration and Reglan, Benadryl and morphine. Labs with normal white count, CMP, lipase. Urinalysis clear. Tox positive for THC. Improved with treatment. Tolerating oral intake Discussed avoidance of THC and treatment plan with patient. Patient stable for outpatient observation and treatment.. Laboratory Tests Test 06/02/18 09:50 06/02/18 10:00 White Blood Count 6.9 K/UL (4.8-10.8) Red Blood Count 4.23 M/UL (4.20-5.40) Hemoglobin 13.8 G/DL (12.0-16.0) Hematocrit 40.4 % (37.0-47.0) Mean Corpuscular Volume 95 FL (80-99) Mean Corpuscular Hemoglobin 32.5 PG (27.0-31.0) H Mean Corpuscular Hemoglobin Concent 34.1 G/DL (32.0-36.0) Red Cell Distribution Width 12.1 % (11.6-14.8) Platelet Count 231 K/UL (150-450) Mean Platelet Volume 9.1 FL (6.5-10.1) Neutrophils (%) (Auto) 70.0 % (45.0-75.0) Lymphocytes (%) (Auto) 20.8 % (20.0-45.0) Monocytes (%) (Auto) 6.9 % (1.0-10.0) Eosinophils (%) (Auto) 0.4 % (0.0-3.0) Basophils (%) (Auto) 1.8 % (0.0-2.0) Prothrombin Time 11.8 SEC (9.30-11.50) H Prothrombin Time INR 1.1 (0.9-1.1) PTT 27 SEC (23-33) Sodium Level 139 MMOL/L (136-145) Potassium Level 4.1 MMOL/L (3.5-5.1) Chloride Level 104 MMOL/L (98-107) Carbon Dioxide Level 22 MMOL/L (21-32) Anion Gap 13 mmol/L (5-15) Blood Urea Nitrogen 14 mg/dL (7-18) Creatinine 0.7 MG/DL (0.55-1.30) Estimate Glomerular Filtration Rate > 60 mL/min (>60) Glucose Level 128 MG/DL (74-106) H Calcium Level 9.5 MG/DL (8.5-10.1) Total Bilirubin 0.3 MG/DL (0.2-1.0) Aspartate Amino Transferase (AST) 17 U/L (15-37) Alanine Aminotransferase (ALT) 18 U/L (12-78) Alkaline Phosphatase 59 U/L (46-116) Total Protein 7.6 G/DL (6.4-8.2) Albumin 4.1 G/DL (3.4-5.0) Globulin 3.5 g/dL Albumin/Globulin Ratio 1.2 (1.0-2.7) Lipase 104 U/L (73-393) Human Chorionic Gonadotropin, Qual Negative (NEGATIVE) Serum Alcohol < 3 mg/dL Urine Color Pale yellow Urine Appearance Clear Urine pH 7 (4.5-8.0) Urine Specific [place] 1.010 (1.005-1.035) Urine Protein Negative (NEGATIVE) Urine Glucose (UA) Negative (NEGATIVE) Urine Ketones 3+ (NEGATIVE) H Urine Blood Negative (NEGATIVE) Urine Nitrite Negative (NEGATIVE) Urine Bilirubin Negative (NEGATIVE) Urine Urobilinogen Normal MG/DL (0.0-1.0) Urine Leukocyte Esterase Negative (NEGATIVE) Urine Opiates Screen Negative (NEGATIVE) Urine Barbiturates Screen Negative (NEGATIVE) Phencyclidine (PCP) Screen Negative (NEGATIVE) Urine Amphetamines Screen Negative (NEGATIVE) Urine Benzodiazepines Screen Negative (NEGATIVE) Urine Cocaine Screen Negative (NEGATIVE) Urine Marijuana (THC) Screen Positive (NEGATIVE) H Rhythm Strip Diag. Results EP Interpretation: yes Rhythm: NSR, no PVC's, no ectopy Chest X-Ray Diagnostic Results Chest X-Ray Diagnostic Results : Chest X-Ray Ordered: Yes # of Views/Limited/Complete: 1 View Indication: Other EP Interpretation: Yes Interpretation: no consolidation, no effusion, no pneumothorax Impression: No acute disease Electronically Signed by: Electronically signed by Padilla Gunter MD Last Vital Signs Date Time Temp Pulse Resp B/P (MAP) Pulse Ox O2 Delivery O2 Flow Rate FiO2 06/02/18 15:00 97.5 88 16 128/78 100 Room Air Status: improved Scripts Mag Hydrox/Al Hydrox/Simeth (MAALOX MAXIMUM STRENGTH SUSP) 355 Ml Oral.susp 30 ML PO Q6HR, #240 ML Prov: Padilla Gunter MD 06/02/18 Ondansetron Odt* (ZOFRAN ODT*) 4 Mg Tab.rapdis 4 MG BC EVERY 8 HOURS, #6 TAB 0 Refills Prov: Padilla Gunter MD 06/02/18 Promethazine Hcl (PROMETHEGAN) 25 Mg Supp.rect 25 MG RC Q8HR PRN for vomit, #3 SUPP Prov: Padilla Gunter MD 06/02/18 Acetaminophen (Tylenol) 325 Mg Tablet 650 MG ORAL Q6H PRN for Prn Pain/Headache/Temp > 101, #30 TAB 0 Refills Prov: Padilla Gunter MD 06/02/18 Famotidine (PEPCID AC) 20 Mg Tablet 20 MG PO DAILY, #30 TAB Prov: Padilla Gunter MD 06/02/18 Padilla Gunetr MD Jun 02, 2018 09:46
--- NOTE | 2018-06-02 09:55 | NUR ---
ED Nurse Note: c/o N/V/D since this morning; Patient consumed shrimp yesterday.. pt is complaining of 10/10 pain on the epigastric area. pt stated the diarrhea and vomiting statrted this morning. pt was connected to the monitor with vital sign with in the normal limit. seen by ermd.will continue to monitor.
--- NOTE | 2018-06-02 10:00 | NUR ---
ED Nurse Note: pt medicated and tolerated well. will continue to monitor.
--- NOTE | 2018-06-02 10:02 | NUR ---
ED Nurse Note: operations and maintenance technican on bedside.
[2018-06-02 10:10] LABS: BASOPHILS % (AUTO) 1.8 % (0.0-2.0); EOSINOPHILS % (AUTO) 0.4 % (0.0-3.0); HEMATOCRIT 40.4 % (37.0-47.0); HEMOGLOBIN 13.8 G/DL (12.0-16.0); LYMPHOCYTES % (AUTO) 20.8 % (20.0-45.0); MEAN CORPUSCULAR VOLUME 95 FL (80-99); MONOCYTES % (AUTO) 6.9 % (1.0-10.0); PLATELET COUNT 231 K/UL (150-450); RED BLOOD COUNT 4.23 M/UL (4.20-5.40); RED CELL DISTRIBUTION WIDTH 12.1 % (11.6-14.8); WHITE BLOOD COUNT 6.9 K/UL (4.8-10.8)
[2018-06-02 10:18] LABS: APPEARANCE,URINE CLEAR; BILIRUBIN, URINE NEGATIVE (NEGATIVE); COLOR,URINE PALE YELLOW; GLUCOSE, URINE (UA) NEGATIVE (NEGATIVE); KETONES,URINE 3+ (NEGATIVE); LEUKOCYTE ESTERASE ,URINE NEGATIVE (NEGATIVE); NITRITE,URINE NEGATIVE (NEGATIVE); PH,URINE 7 (4.5-8.0); PROTEIN,URINE NEGATIVE (NEGATIVE); UROBILINOGEN,URINE NORMAL MG/DL (0.0-1.0)
[2018-06-02 10:19] LABS: INR 1.1 (0.9-1.1)
[2018-06-02 10:25] VITALS: BP 135/82
--- NOTE | 2018-06-02 10:27 | NUR ---
ED Nurse Note: lab called informing pt is not .
[2018-06-02 10:31] LABS: ANION GAP 13 mmol/L (5-15); BLOOD UREA NITROGEN 14 mg/dL (7-18); CALCIUM 9.5 MG/DL (8.5-10.1); CARBON DIOXIDE 22 MMOL/L (21-32); CHLORIDE 104 MMOL/L (98-107); CREATININE 0.7 MG/DL (0.55-1.30); POTASSIUM 4.1 MMOL/L (3.5-5.1); SODIUM 139 MMOL/L (136-145)
[2018-06-02 10:35] LABS: ALANINE AMINOTRANSFERASE 18 U/L (12-78); ALBUMIN 4.1 G/DL (3.4-5.0); ALBUMIN/GLOBULIN RATIO 1.2 (1.0-2.7); ALKALINE PHOSPHATASE 59 U/L (46-116); ASPARTATE AMINO TRANSFERASE 17 U/L (15-37); BILIRUBIN,TOTAL 0.3 MG/DL (0.2-1.0)
--- NOTE | 2018-06-02 10:56 | Diagnostic Imaging Report ---
Indication: Shortness of breath Technique: One view of the chest Comparison: 03/26/2017 Findings: Basilar opacity of the left lower lung probably represents a nipple shadow. The lungs and pleural spaces are otherwise clear. Heart size is normal. Impression: Left basilar opacity, likely nipple shadow. Consider repeat with nipple markers. No acute process otherwise Findings discussed by phone with Dr. Gunter in the emergency room at the time of interpretation
[2018-06-02 14:30] VITALS: BP 128/78
[2018-06-02] MEDS ORDERED: PEPCID AC20 M2 PO (14:39)
[2018-06-02] MEDS ORDERED: ONDANSETRON ODT4 MG BC (14:39)
[2018-06-02] MEDS ORDERED: TYLENOL325 MG ORAL (14:39)
[2018-06-02] MEDS ORDERED: MAALOX MAXIMUM355 M1 PO (14:39)
[2018-06-02] MEDS ORDERED: PROMETHEGAN25 MG RC (14:39)
[2018-06-02 15:00] VITALS: BP 128/78
--- NOTE | 2018-06-02 15:00 | NUR ---
ER DISCHARGE NOTE: Patient is cleared to be discharged per ERMD, pt is aox4, on room air, with stable vital signs. pt was given dc and prescription instructions, pt was able to verbalize understanding, pt id band and iv site removed without complications. pt is able to ambulate with steady gait. pt took all belongings.
== END 2018-06-02 15:00 | disposition home or self-care (01) ==
LOC: EMR 09:45
DX: G43.A0 Cyclical vomiting, in migraine, not intractable (principal); R10.13 Epigastric pain; J45.909 Unspecified asthma, uncomplicated; F12.90 Cannabis use, unspecified, uncomplicated
CPT/HCPCS: 36415; 71045; 80053; 80307; 80329; 81003; 83690; 84703; 85025; 85610; 85730; 96361; 96374; 96375; 99284; J1200; J2270; J2765

== ENCOUNTER 2018-07-11 08:31 | Emergency (ER) | payer OTHER ==
[~2018-07-11] VITALS: Ht 162.6 cm; Wt 45.8 kg
[~2018-07-11 08:31] MED LIST changes: +MAALOX MAXIMUM355 M1 PO; +ONDANSETRON ODT4 MG BC; +PEPCID AC20 M2 PO; +PROMETHEGAN25 MG RC; +TYLENOL325 MG ORAL
[2018-07-11] MEDS ORDERED: ALBUTEROL SULF8.5 GM INH (08:46)
--- NOTE | 2018-07-11 08:50 | NUR ---
ED Nurse Note: Patient reports she has been having sore throat and general bodyache for 2 days.
[2018-07-11 09:04] VITALS: BP 120/75
--- NOTE | 2018-07-11 09:20 | Emergency Room Report ---
History of Present Illness General Chief Complaint: Sore Throat Source: Patient Present Illness HPI She complains of 2 days of sore throat and body aches. She is also had congestion and occasional cough. She has been using cough suppressants, her inhaler and decongestions. She states that these do improve her symptoms. She denies headache or neck pain. She denies fever or chills. She states she feels like her breathing is normal and that her asthma is not exacerbated. She has no other complaints. Allergies: Coded Allergies: CITRIC ACID (Verified Allergy, Unknown, 05/19/18) Patient History Past Medical History: see triage record, asthma Social History: Denies: smoking, alcohol use, drug use Last Menstrual Period: 05/2018 Reviewed Nursing Documentation: PMH: Agreed; PSxH: Agreed Nursing Documentation-PMH Past Medical History: No History, Except For Hx Cardiac Problems: No Hx Hypertension: No Hx Pacemaker: No Hx Asthma: Yes Hx COPD: No - Eczema, Bronchitis Hx Diabetes: No Hx Cancer: No Hx Gastrointestinal Problems: No Hx Dialysis: No History Of Psychiatric Problem: No Hx Neurological Problems: No Hx Cerebrovascular Accident: No Hx Seizures: No Review of Systems All Other Systems: negative except mentioned in HPI Physical Exam Vital Signs Date Time Temp Pulse Resp B/P (MAP) Pulse Ox O2 Delivery O2 Flow Rate FiO2 07/11/18 08:42 98.4 102 18 98 Room Air 07/11/18 09:04 120/75 Sp02 EP Interpretation: reviewed, normal General Appearance: no apparent distress, alert, GCS 15, non-toxic Head: normocephalic, atraumatic Eyes: bilateral eye normal inspection, bilateral eye PERRL ENT: hearing grossly normal, normal pharynx, no angioedema, normal voice Neck: full range of motion, supple/symm/no masses Respiratory: chest non-tender, lungs clear, normal breath sounds, no respiratory distress, no retraction, no accessory muscle use, speaking full sentences Cardiovascular #1: regular rate, rhythm, no edema Rectal: deferred Musculoskeletal: back normal, gait/station normal, normal range of motion Neurologic: alert, oriented x3, responsive, motor strength/tone normal, sensory intact, speech normal Psychiatric: judgement/insight normal, memory normal, mood/affect normal, no suicidal/homicidal ideation Skin: normal color, no rash, warm/dry, well hydrated Medical Decision Making Diagnostic Impression: Primary Impression: Pharyngitis, acute ER Course This patient has a clinical presentation with upper respiratory tract infection. The evaluation was very reassuring with a normal lung exam, no respiratory distress, normal pulse oximetry. I am not concerned for pneumonia in this patient. This is most likely viral and will not need antibiotic therapy. Patient is instructed on supportive care. No emergency medical condition was identified. The patient is given close return precautions and follow-up instructions. Last Vital Signs Date Time Temp Pulse Resp B/P (MAP) Pulse Ox O2 Delivery O2 Flow Rate FiO2 07/11/18 09:04 98.4 98 18 120/75 98 Room Air Status: improved Disposition: HOME, SELF-CARE Condition: Improved Patient Instructions: Sore Throat Amanda Nathan DO July 11, 2018 09:20
[2018-07-11 09:35] VITALS: BP 120/75
--- NOTE | 2018-07-11 09:35 | NUR ---
ER DISCHARGE NOTE: Patient is cleared to be discharged per ERMTanna Nathan, pt is aox4, on room air, with stable vital signs. pt was given dc instructions, pt was able to verbalize understanding, pt id band removed without complications. pt is able to ambulate with steady gait with her daughter. pt took all belongings.
== END 2018-07-11 09:35 | disposition home or self-care (01) ==
LOC: EMR 09:00
DX: J02.9 Acute pharyngitis, unspecified (principal); Z88.8 Allergy status to other drugs, medicaments and biological substances
CPT/HCPCS: 99282

== ENCOUNTER 2018-09-04 21:52 | Emergency (ER) | payer OTHER ==
[~2018-09-04] VITALS: Ht 152.4 cm; Wt 47.6 kg
--- NOTE | 2018-09-04 21:55 | NUR ---
ED Nurse Note: CALLED FOR TRIAGE; NOT IN WAITING ROOM
[2018-09-04 22:05] VITALS: BP 126/79
--- NOTE | 2018-09-04 22:10 | NUR ---
ED Nurse Note: Pt ambulated to ED from home. Pt was seen by dentist today, reported BP was low. Pt BP was NL upon triage. PT is A&Ox4, denies pain.
[2018-09-04 22:44] LABS: BASOPHILS % (AUTO) 2.2 % (0.0-2.0); HEMATOCRIT 37.3 % (37.0-47.0); HEMOGLOBIN 12.8 G/DL (12.0-16.0); MEAN CORPUSCULAR VOLUME 95 FL (80-99); MONOCYTES % (AUTO) 9.7 % (1.0-10.0); NEUTROPHILS % (AUTO) 39.1 % (45.0-75.0); PLATELET COUNT 207 K/UL (150-450); RED BLOOD COUNT 3.93 M/UL (4.20-5.40); RED CELL DISTRIBUTION WIDTH 11.2 % (11.6-14.8); WHITE BLOOD COUNT 6.2 K/UL (4.8-10.8)
[2018-09-04 22:53] LABS: ANION GAP 8 mmol/L (5-15); BLOOD UREA NITROGEN 13 mg/dL (7-18); CALCIUM 9.1 MG/DL (8.5-10.1); CARBON DIOXIDE 27 MMOL/L (21-32); CHLORIDE 102 MMOL/L (98-107); CREATININE 0.6 MG/DL (0.55-1.30); POTASSIUM 3.9 MMOL/L (3.5-5.1); SODIUM 137 MMOL/L (136-145)
[2018-09-04 22:57] LABS: ALANINE AMINOTRANSFERASE 11 U/L (12-78); ALBUMIN 4.2 G/DL (3.4-5.0); ALBUMIN/GLOBULIN RATIO 1.6 (1.0-2.7); ALKALINE PHOSPHATASE 53 U/L (46-116); ASPARTATE AMINO TRANSFERASE 19 U/L (15-37); BILIRUBIN,TOTAL 0.4 MG/DL (0.2-1.0)
[2018-09-04 23:15] LABS: APPEARANCE,URINE CLEAR; BILIRUBIN, URINE NEGATIVE (NEGATIVE); COLOR,URINE PALE YELLOW; GLUCOSE, URINE (UA) NEGATIVE (NEGATIVE); KETONES,URINE NEGATIVE (NEGATIVE); LEUKOCYTE ESTERASE ,URINE NEGATIVE (NEGATIVE); NITRITE,URINE NEGATIVE (NEGATIVE); PH,URINE 7 (4.5-8.0); PROTEIN,URINE NEGATIVE (NEGATIVE); UROBILINOGEN,URINE NORMAL MG/DL (0.0-1.0)
[2018-09-05] VITALS: BP 126/79
--- NOTE | 2018-09-05 00:53 | Emergency Room Report ---
History of Present Illness General Chief Complaint: General Complaint Source: Patient Present Illness HPI 38-year-old female presents ED for evaluation. Patient is here for evaluation of low blood pressure. Was seen a dentist today and BP was 80s over 60s. Was at dentist office for extraction but could not be done because of her blood pressure. States she did feel a little dizzy at that time. BP in triage 126/ 79. States she does feel better. States that her blood pressures normally in the 120s. Denies any chest pain or shortness of breath. Denies fevers or chills. Denies any weakness. No other aggravating relieving factors. Denies any other associated symptoms Allergies: Coded Allergies: CITRIC ACID (Verified Allergy, Unknown, 05/19/18) Patient History Past Medical History: none Past Surgical History: none Pertinent Family History: none Social History: Denies: smoking, alcohol use, drug use Last Menstrual Period: 08/20/18 Now: No Immunizations: UTD Reviewed Nursing Documentation: PMH: Agreed; PSxH: Agreed Nursing Documentation-PMH Past Medical History: No History, Except For Hx Cardiac Problems: No Hx Hypertension: No Hx Pacemaker: No Hx Asthma: Yes - BRONCHITIS Hx COPD: No - Eczema, Bronchitis Hx Diabetes: No Hx Cancer: No Hx Gastrointestinal Problems: No Hx Dialysis: No Hx Neurological Problems: No Hx Cerebrovascular Accident: No Hx Seizures: No Review of Systems All Other Systems: negative except mentioned in HPI Physical Exam Vital Signs Date Time Temp Pulse Resp B/P (MAP) Pulse Ox O2 Delivery O2 Flow Rate FiO2 09/04/18 21:59 98.6 90 12 126/79 (95) 100 Room Air Sp02 EP Interpretation: reviewed, normal General Appearance: no apparent distress, alert, GCS 15, non-toxic Head: normocephalic, atraumatic Eyes: bilateral eye normal inspection, bilateral eye PERRL ENT: hearing grossly normal, normal pharynx, no angioedema, normal voice Neck: full range of motion, supple/symm/no masses Respiratory: chest non-tender, lungs clear, normal breath sounds, speaking full sentences Cardiovascular #1: regular rate, rhythm, no edema Cardiovascular #2: 2+ carotid (R), 2+ carotid (L), 2+ radial (R), 2+ radial (L) , 2+ dorsalis pedis (R), 2+ dorsalis pedis (L) Gastrointestinal: normal bowel sounds, non tender, soft, non-distended, no guarding, no rebound Rectal: deferred Genitourinary: normal inspection, no CVA tenderness Musculoskeletal: back normal, gait/station normal, normal range of motion, non- tender Neurologic: alert, oriented x3, responsive, motor strength/tone normal, sensory intact, speech normal Psychiatric: judgement/insight normal, memory normal, mood/affect normal, no suicidal/homicidal ideation Reflexes: 3+ bicep (R), 3+ bicep (L), 3+ tricep (R), 3+ tricep (L), 3+ knee (R) , 3+ knee (L) Lymphatic: no adenopathy Medical Decision Making Diagnostic Impression: Primary Impression: Hypotension Qualified Codes: I95.9 - Hypotension, unspecified Additional Impression: Dizziness ER Course Hospital Course 38-year-old female presents ED with dizziness and hypotension earlier today. Asymptomatic now Differential diagnoses include: arrythmia, dehydration, hypotension Clinical course Patient placed on stretcher. on electronic device monitor. After initial history and physical I ordered labs, EKG, IVFs labs reviewed- no leukocytosis, Hb/Hct stable, electrolytes ok, UA negative EKG - NSR, no acute ischemic changes interpreted by me Discussed findings with patient. Work-up unremarkable. BP 126/79 in ED. Patient has no significant risk factors no medical problems. Reassurance given. Patient could likely return to dentist office for procedure as scheduled. Patient states she does have a PMD that she can follow-up with. I. I feel this is a highly complex case requiring extensive working including EKG/Rhythm strip, Xray/CT/US, Blood/urine lab work, repeat exams while in ED, and administration of strong opiates/narcotics for pain control, admission to hospital or close patient follow up. Diagnosis - hypotension, dizziness Stable and discharged to home. Followup with PMD. Return to ED if symptoms recur or worsen Labs Test 09/04/18 22:20 09/04/18 23:00 White Blood Count 6.2 K/UL (4.8-10.8) Red Blood Count 3.93 M/UL (4.20-5.40) Hemoglobin 12.8 G/DL (12.0-16.0) Hematocrit 37.3 % (37.0-47.0) Mean Corpuscular Volume 95 FL (80-99) Mean Corpuscular Hemoglobin 32.5 PG (27.0-31.0) Mean Corpuscular Hemoglobin Concent 34.2 G/DL (32.0-36.0) Red Cell Distribution Width 11.2 % (11.6-14.8) Platelet Count 207 K/UL (150-450) Mean Platelet Volume 7.9 FL (6.5-10.1) Neutrophils (%) (Auto) 39.1 % (45.0-75.0) Lymphocytes (%) (Auto) 48.0 % (20.0-45.0) Monocytes (%) (Auto) 9.7 % (1.0-10.0) Eosinophils (%) (Auto) 1.0 % (0.0-3.0) Basophils (%) (Auto) 2.2 % (0.0-2.0) Sodium Level 137 MMOL/L (136-145) Potassium Level 3.9 MMOL/L (3.5-5.1) Chloride Level 102 MMOL/L (98-107) Carbon Dioxide Level 27 MMOL/L (21-32) Anion Gap 8 mmol/L (5-15) Blood Urea Nitrogen 13 mg/dL (7-18) Creatinine 0.6 MG/DL (0.55-1.30) Estimat Glomerular Filtration Rate > 60 mL/min (>60) Glucose Level 80 MG/DL (74-106) Calcium Level 9.1 MG/DL (8.5-10.1) Total Bilirubin 0.4 MG/DL (0.2-1.0) Aspartate Amino Transf (AST/SGOT) 19 U/L (15-37) Alanine Aminotransferase (ALT/SGPT) 11 U/L (12-78) Alkaline Phosphatase 53 U/L (46-116) Total Protein 6.9 G/DL (6.4-8.2) Albumin 4.2 G/DL (3.4-5.0) Globulin 2.7 g/dL Albumin/Globulin Ratio 1.6 (1.0-2.7) Urine Color Pale yellow Urine Appearance Clear Urine pH 7 (4.5-8.0) Urine Specific [place] 1.010 (1.005-1.035) Urine Protein Negative (NEGATIVE) Urine Glucose (UA) Negative (NEGATIVE) Urine Ketones Negative (NEGATIVE) Urine Blood Negative (NEGATIVE) Urine Nitrite Negative (NEGATIVE) Urine Bilirubin Negative (NEGATIVE) Urine Urobilinogen Normal MG/DL (0.0-1.0) Urine Leukocyte Esterase Negative (NEGATIVE) Urine HCG, Qualitative Negative (NEGATIVE) EKG Diagnostic Results Rate: normal Rhythm: NSR ST Segments: no acute changes ASA given to the pt in ED: No Rhythm Strip Diag. Results EP Interpretation: yes Rhythm: NSR, no PVC's, no ectopy Last Vital Signs Date Time Temp Pulse Resp B/P (MAP) Pulse Ox O2 Delivery O2 Flow Rate FiO2 09/05/18 00:00 98.6 80 12 126/79 100 Room Air Status: improved Disposition: HOME, SELF-CARE Condition: Stable Patient Instructions: Hypotension, [id number] Hever White MD Sep 05, 2018 00:53
--- NOTE | 2018-09-05 18:49 | Cardiology Report ---
APPROVED REPORT EKG Measurement Heart [id number] [id number] Normal sinus rhythm Normal ECG
== END 2018-09-05 | disposition home or self-care (01) ==
LOC: EMR 22:16
DX: I95.9 Hypotension, unspecified (principal); R42 Dizziness and giddiness; Z91.09 Other allergy status, other than to drugs and biological substances
CPT/HCPCS: 36415; 80053; 81003; 81025; 85025; 93005; 99284

== ENCOUNTER 2020-03-07 00:41 | Emergency (ER) | payer OTHER ==
[~2020-03-07] VITALS: Ht 154.9 cm; Wt 52.6 kg
[2020-03-07 00:45] VITALS: BP 126/74
--- NOTE | 2020-03-07 00:45 | NUR ---
ED Nurse Note: pt walked into ED from home c/o chest pain for the past 3 hours on and off that worsens with breathing. Pt denies prior heart history. pt is AAOx4, breathing even and unlabored, VSS. Pt states last COVID test was Dec 2019 and was negative.
--- NOTE | 2020-03-07 01:05 | Emergency Room Report ---
History of Present Illness General Chief Complaint: Chest Pain Source: Patient, Medical Record Present Illness HPI This is a 39-year-old female with history of asthma. She presents with chief complaint of chest pain. Onset for 3 hours now. Pain described as a pulling tightness in the left upper chest area. No nausea no vomiting. No radiation. No fever chills. Pain is 6 out of 10. Worse with inspiration. Better with rest. Denies any cough or congestion. Has not take anything for it. No family history of DVT or PE. Not on control pill. 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 COVID-19 Screening: Negative COVID-19 COVID-19 Testing Source: [place] Patient History Past Medical History: see triage record, old chart reviewed, asthma Past Surgical History: none Pertinent Family History: none Social History: Denies: smoking Now: No Immunizations: other Reviewed Nursing Documentation: PMH: Agreed; PSxH: Agreed Nursing Documentation-PMH Hx Cardiac Problems: No Hx Hypertension: No Hx Pacemaker: No Hx Asthma: Yes - BRONCHITIS Hx COPD: No - Eczema, Bronchitis Hx Diabetes: No Hx Cancer: No Hx Gastrointestinal Problems: No Hx Dialysis: No Hx Neurological Problems: No Hx Cerebrovascular Accident: No Hx Seizures: No Review of Systems Eye: Denies: eye pain, blurred vision ENT: Denies: ear pain, nose congestion, throat swelling Respiratory: Denies: cough, shortness of breath Cardiovascular: Reports: chest pain; Denies: palpitations Gastrointestinal: Denies: abdominal pain, diarrhea, nausea, vomiting Musculoskeletal: Denies: back pain, joint pain Skin: Denies: rash Neurological: Denies: headache, numbness Endocrine: Denies: increased thirst, increased urine Hematologic/Lymphatic: Denies: easy bruising All Other Systems: negative except mentioned in HPI Physical Exam Vital Signs Date Time Temp Pulse Resp B/P (MAP) Pulse Ox O2 Delivery O2 Flow Rate FiO2 03/07/20 00:43 98.4 84 20 126/76 (93) 99 Room Air Vitals normal Sp02 EP Interpretation: reviewed, normal General Appearance: well appearing, no apparent distress, alert Head: normocephalic, atraumatic Eyes: bilateral eye PERRL, bilateral eye EOMI ENT: hearing grossly normal, normal pharynx Neck: full range of motion, supple, no meningismus Respiratory: chest non-tender, lungs clear, normal breath sounds Cardiovascular #1: regular rate, rhythm, no murmur Gastrointestinal: normal bowel sounds, non tender, no mass, no organomegaly, no bruit, non-distended Musculoskeletal: back normal, normal range of motion, gait/station normal Psychiatric: mood/affect normal Medical Decision Making Diagnostic Impression: Primary Impression: Chest pain Qualified Codes: R07.9 - Chest pain, unspecified ER Course This patient presents with atypical chest pain. No evidence of ACS, PE, dissection to name a few. Negative for Covid. She is pain-free now. Will discharge home. EKG Diagnostic Results Troponin ordered: Yes Rate: normal Rhythm: NSR ST Segments: no acute changes Rhythm Strip Diag. Results EP Interpretation: yes Rate: 94 Rhythm: NSR, no PVC's, no ectopy Chest X-Ray Diagnostic Results Chest X-Ray Diagnostic Results : Chest X-Ray Ordered: Yes # of Views/Limited/Complete: 1 View Indication: Chest Pain EP Interpretation: Yes Interpretation: no consolidation, no effusion, no pneumothorax, no acute cardiopulmonary disease Impression: No acute disease Electronically Signed by: Shane Mendoza MD Last Vital Signs Date Time Temp Pulse Resp B/P (MAP) Pulse Ox O2 Delivery O2 Flow Rate FiO2 03/07/20 00:43 98.4 84 20 126/76 (93) 99 Room Air Status: improved Disposition: HOME, SELF-CARE Condition: Stable Referrals: [facility] (PCP) Patient Instructions: Nonspecific Chest Pain Additional Instructions: Follow-up with your doctor in 7 days. Return if symptoms worsen. Shane Mendoza MD Mar 07, 2020 01:05
--- NOTE | 2020-03-07 01:10 | NUR ---
ED Nurse Note: blood and COVID swab sent to lab
--- NOTE | 2020-03-07 01:13 | NUR ---
ED Nurse Note: solar lab technician at bedside
--- NOTE | 2020-03-07 01:13 | NUR ---
ED Nurse Note: pt unable to void at the moment.
[2020-03-07] MEDS ORDERED: Ketorolac 30mg Inj IV ONE (01:15)
[2020-03-07 01:35] LABS: BASOPHILS % (AUTO) 2.8 % (0.0-2.0); EOSINOPHILS % (AUTO) 2.9 % (0.0-3.0); MEAN CORPUSCULAR VOLUME 97 FL (80-99); MONOCYTES % (AUTO) 7.8 % (1.0-10.0); NEUTROPHILS % (AUTO) 48.4 % (45.0-75.0); PLATELET COUNT 231 K/UL (150-450); RED BLOOD COUNT 4.04 M/UL (4.20-5.40); RED CELL DISTRIBUTION WIDTH 12.7 % (11.6-14.8)
--- NOTE | 2020-03-07 01:47 | NUR ---
ED Nurse Note: urine sent to lab
[2020-03-07 01:53] LABS: ALANINE AMINOTRANSFERASE 15 U/L (12-78); ALBUMIN 3.7 G/DL (3.4-5.0); ALBUMIN/GLOBULIN RATIO 1.1 (1.0-2.7); ALKALINE PHOSPHATASE 68 U/L (46-116); ANION GAP 10 mmol/L (5-15); ASPARTATE AMINO TRANSFERASE 20 U/L (15-37); BILIRUBIN,TOTAL 0.7 MG/DL (0.2-1.0); BLOOD UREA NITROGEN 9 mg/dL (7-18); CALCIUM 9.2 MG/DL (8.5-10.1); CARBON DIOXIDE 26 MMOL/L (21-32); CHLORIDE 101 MMOL/L (98-107); CREATININE 0.6 MG/DL (0.55-1.30); POTASSIUM 3.4 MMOL/L (3.5-5.1); SODIUM 137 MMOL/L (136-145)
[2020-03-07 02:00] LABS: APPEARANCE,URINE CLEAR; BILIRUBIN, URINE NEGATIVE (NEGATIVE); GLUCOSE, URINE (UA) NEGATIVE (NEGATIVE); KETONES,URINE NEGATIVE (NEGATIVE); LEUKOCYTE ESTERASE ,URINE 1+ (NEGATIVE); NITRITE,URINE NEGATIVE (NEGATIVE); PH,URINE 5 (4.5-8.0); PROTEIN,URINE 1+ (NEGATIVE); UROBILINOGEN,URINE 1 MG/DL (0.0-1.0)
[2020-03-07 02:08] LABS: COLOR,URINE YELLOW
[2020-03-07 02:18] VITALS: BP 111/72
--- NOTE | 2020-03-07 14:50 | Diagnostic Imaging Report ---
Indication: Chest pain Technique: One view of the chest Comparison: none Findings: Lungs and pleural spaces are clear. Heart size is normal. No significant change Impression: No acute process
== END 2020-03-07 02:20 | disposition home or self-care (01) ==
LOC: EMR 00:55
DX: R07.9 Chest pain, unspecified (principal); J45.909 Unspecified asthma, uncomplicated; Z91.018 Allergy to other foods; Z79.899 Other long term (current) drug therapy
CPT/HCPCS: 36415; 71045; 80053; 81003; 81025; 84484; 85025; 85379; 93005; 96374; J1885; U0002; Z7502; 99284

== ENCOUNTER 2020-03-30 23:03 | Emergency (ER) | payer OTHER ==
[~2020-03-30] VITALS: Ht 152.4 cm; Wt 54.0 kg
--- NOTE | 2020-03-30 23:20 | NUR ---
ED Nurse Note: Patient came to the ED with complaints of bleeding bright red blood after intercourse with muscle spasms. Last Menstrual period 03/23/2020. Patient is Aox4, calm, cooperative.
[2020-03-30 23:32] LABS: APPEARANCE,URINE CLEAR; BILIRUBIN, URINE NEGATIVE (NEGATIVE); COLOR,URINE PALE YELLOW; GLUCOSE, URINE (UA) NEGATIVE (NEGATIVE); KETONES,URINE NEGATIVE (NEGATIVE); LEUKOCYTE ESTERASE ,URINE NEGATIVE (NEGATIVE); NITRITE,URINE NEGATIVE (NEGATIVE); PH,URINE 6 (4.5-8.0); PROTEIN,URINE NEGATIVE (NEGATIVE); UROBILINOGEN,URINE NORMAL MG/DL (0.0-1.0)
[2020-03-30 23:33] VITALS: BP 115/77
--- NOTE | 2020-03-30 23:52 | Emergency Room Report ---
History of Present Illness General Chief Complaint: General Complaint Source: Patient Present Illness HPI Is a 39-year-old female with no significant past medical history patient presents with chief complaint of vaginal bleeding. She had sexual intercourse yesterday and noticed some blood afterward. She has some mild cramping pain. Her menstruation was a week prior. Bleeding stopped. She was concerned so she came in. No dysuria frequency. Some mild discharge. has some mild crampy pain. 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 COVID-19 Screening: Negative COVID-19 COVID-19 Testing Source: [place] Patient History Past Medical History: see triage record, old chart reviewed Past Surgical History: none Pertinent Family History: none Social History: Denies: smoking Last Menstrual Period: 03/23/20 Now: No : 1 Para: 1 Immunizations: other Reviewed Nursing Documentation: PMH: Agreed; PSxH: Agreed Nursing Documentation-PMH Past Medical History: No History, Except For Hx Cardiac Problems: No Hx Hypertension: No Hx Pacemaker: No Hx Asthma: Yes - BRONCHITIS Hx COPD: No - Eczema, Bronchitis Hx Diabetes: No Hx Cancer: No Hx Gastrointestinal Problems: No Hx Dialysis: No Hx Neurological Problems: No Hx Cerebrovascular Accident: No Hx Seizures: No Review of Systems Eye: Denies: eye pain, blurred vision ENT: Denies: ear pain, nose congestion, throat swelling Respiratory: Denies: cough, shortness of breath Cardiovascular: Denies: chest pain, palpitations Gastrointestinal: Denies: abdominal pain, diarrhea, nausea, vomiting Genitourinary: Reports: vag bleed/dc Musculoskeletal: Denies: back pain, joint pain Skin: Denies: rash Neurological: Denies: headache, numbness Endocrine: Denies: increased thirst, increased urine Hematologic/Lymphatic: Denies: easy bruising All Other Systems: negative except mentioned in HPI Physical Exam Vital Signs Date Time Temp Pulse Resp B/P (MAP) Pulse Ox O2 Delivery O2 Flow Rate FiO2 03/30/20 23:14 98.2 89 18 115/77 (90) 93 Room Air Vitals normal. Repeat pulse ox 100%. Sp02 EP Interpretation: reviewed, normal General Appearance: well appearing, no apparent distress, alert Head: normocephalic, atraumatic Eyes: bilateral eye PERRL, bilateral eye EOMI ENT: hearing grossly normal, normal pharynx Neck: full range of motion, supple, no meningismus Respiratory: chest non-tender, lungs clear, normal breath sounds Cardiovascular #1: regular rate, rhythm, no murmur Gastrointestinal: normal bowel sounds, non tender, no mass, no organomegaly, no bruit, non-distended Genitourinary: other - Pelvic exam done with female nurse as city marshal. External exam normal. Internal exam showed no evidence of any trauma. She does have moderate amount of greenish discharge. Musculoskeletal: back normal, normal range of motion, gait/station normal Psychiatric: mood/affect normal Medical Decision Making Diagnostic Impression: Primary Impression: Cervicitis, acute, non-specific ER Course This patient presents with vaginal bleeding and discharge. Will treat for gonorrhea and chlamydia. Advised patient to have partner treated also. She also asked for Plan B. Her intercourse was yesterday. Last Vital Signs Date Time Temp Pulse Resp B/P (MAP) Pulse Ox O2 Delivery O2 Flow Rate FiO2 03/30/20 23:33 89 18 Room Air 03/30/20 23:33 98.2 115/77 93 Status: improved Disposition: HOME, SELF-CARE Condition: Stable Scripts Levonorgestrel (PLAN B ONE-STEP) 1.5 Mg Tablet 1.5 MG PO DAILY, #1 PACK Prov: Shane Mendoza MD 03/31/20 Referrals: [facility] (PCP) Additional Instructions: Have your partner treated. Recommend outpatient testing for HIV, hepatitis, syphilis and other STDs. This can be done anonymously at any health department. Return if symptoms worsen. Shane Mendoza MD Mar 30, 2020 23:52
--- NOTE | 2020-03-30 23:54 | NUR ---
ED Nurse Note: Specimen collected brought to the lab.
[2020-03-31] MEDS ORDERED: PLAN B ONE-STE1.5 MG PO (00:54)
[2020-03-31] MEDS ORDERED: cefTRIAXone 500mg Inj IM ONE (01:00)
[2020-03-31] MEDS ORDERED: Lidocaine 1% MPF 10mg/ml 5ml INJ ONE (01:00)
[2020-03-31] MEDS ORDERED: Azithromycin 250mg tab ORAL ONE (01:00)
--- NOTE | 2020-03-31 01:00 | NUR ---
ED Nurse Note: Patient refused injection Rocephin.
--- NOTE | 2020-03-31 01:13 | NUR ---
ED Nurse Note:ER provider made aware of patient medication refusal. Patient advised to wait for provider for alternative to inj. pt states she knows she is "fine, no G/Chl concerns.
== END 2020-03-31 01:05 | disposition home or self-care (01) ==
LOC: EMR 23:29
DX: N72 Inflammatory disease of cervix uteri (principal); Z91.048 Other nonmedicinal substance allergy status
CPT/HCPCS: 81003; 81025; 87070; 87210; J0696; Q0144; Z7502; 99283